=== PATIENT | female | born 1950 | race Hispanic/Latino ===

== ENCOUNTER 2021-07-07 12:06 | Observation (INO) | payer MEDICARE, OTHER ==
[~2021-07-07] VITALS: Ht 147.3 cm; Wt 45.8 kg
[~2021-07-07 12:06] MED LIST: METR-172 PO; SULF1TAB41 PO
[2021-07-07 12:45] LABS: BASOPHILS % (AUTO) 0.2 % (0.0-5.0); EOSINOPHILS % (AUTO) 1.9 % (0.0-8.0); HEMATOCRIT 22.4 % (36-48); LYMPHOCYTES % (AUTO) 8.1 % (21.0-51.0); MEAN CORPUSCULAR HEMOGLOBIN 34.2 pg (27.0-33.0); MEAN CORPUSCULAR HGB CONC 33.5 g/dL (32.0-36.0); MEAN CORPUSCULAR VOLUME 102.3 fL (79-99); MONOCYTES % (AUTO) 3.2 % (3.0-13.0); NEUTROPHILS % (AUTO) 86.1 % (40.0-77.0); PLATELET COUNT (AUTO) 257 K/uL (130-400); RED BLOOD CELL COUNT(AUTO) 2.19 MIL/uL (4.00-5.50); RED CELL DISTRIBUTION WIDTH 15.9 % (11.0-15.5); WHITE BLOOD COUNT (AUTO) 6.3 K/uL (4.8-10.8)
[2021-07-07 13:00] LABS: INR 1.61 (0.85-1.15); PROTHROMBIN TIME 16.8 SEC (9.6-11.6)
[2021-07-07 13:02] LABS: PARTIAL THROMBOPLASTIN TIME 44.5 SEC (26.3-35.5)
[2021-07-07 13:09] LABS: ALBUMIN 1.2 g/dL (3.5-5.0); BILIRUBIN,TOTAL 1.5 mg/dL (0.2-1.0); CREATININE 1.2 mg/dL (0.5-1.5); POTASSIUM 3.7 mmol/L (3.5-5.1); TOTAL PROTEIN, SERUM 5.3 g/dL (6.0-8.3)
[2021-07-07 14:44] LABS: APPEARANCE,URINE Clear (CLEAR); BILIRUBIN,URINE Small (NEGATIVE); COLOR,URINE Dark Yellow (YELLOW); GLUCOSE, URINE (UA) Negative (NEGATIVE); KETONES,URINE Trace mg/dL (NEGATIVE); LEUKOCYTE ESTERASE ,URINE Moderate (NEGATIVE); NITRATE,URINE Negative (NEGATIVE); OCCULT BLOOD,URINE Negative (NEGATIVE); PROTEIN,URINE Negative (NEGATIVE)
[2021-07-07 15:29] LABS: BACTERIA,URINE Few /HPF (None Seen); RBC,URINE 0-1 /HPF (0-1)
[2021-07-07 15:30] LABS: SQUAMOUS EPITHELIAL CELL,UR Rare /HPF (0-2)
[2021-07-07 16:28] VITALS: BP 10/48
[2021-07-07] MEDS ORDERED: CLONIDINE HCL 0.1 MG TABLET PO PRN (17:00)
[2021-07-07] MEDS ORDERED: ACETAMINOPHEN 650 MG SUPPOSITORY RC PRN (17:00)
[2021-07-07] MEDS ORDERED: ONDANSETRON 4MG INJ IVP PRN (17:00)
[2021-07-07] MEDS ORDERED: ACETAMINOPHEN 325 MG TAB PO PRN (17:00)
[2021-07-07] MEDS ORDERED: 0.9%NACL 50ML 50 ML IV ONE (17:52)
[2021-07-07 17:59] LABS: HEMATOCRIT 19.3 % (36-48)
[2021-07-07] MEDS: 0.9%NACL 1000ML 1,000 ML IV SCH (17:59)
[2021-07-07] MEDS: ZOSYN 3.375GM +NS 50ML IV SCH (17:59)
[2021-07-07] MEDS ORDERED: PHYTONADIONE 10 MG in 0.9%NACL 50ML 50 ML IVPB ONE (18:00)
[2021-07-07 18:30] LABS: IRON, SERUM 53 mcg/dL (50-170); TOTAL IRON BINDING CAPACITY 50 mcg/dL (250-450)
[2021-07-07 18:39] LABS: THYROID STIMULATING HORMONE 1.93 uIU/mL (0.36-3.74)
[2021-07-07 18:54] VITALS: BP 95/51
[2021-07-07 20:00] VITALS: BP 100/52
[2021-07-07] MEDS: PANTOPRAZOLE 40 MG/VIAL IVP SCH (20:27)
[2021-07-08] MEDS: ZOSYN 3.375GM +NS 50ML IV SCH ×3 (01:11→16:36)
[2021-07-08 01:45] VITALS: BP 114/65
[2021-07-08 02:32] LABS: HEMATOCRIT 31.6 % (36-48); MEAN CORPUSCULAR HEMOGLOBIN 29.9 pg (27.0-33.0); MEAN CORPUSCULAR HGB CONC 34.2 g/dL (32.0-36.0); MEAN CORPUSCULAR VOLUME 87.5 fL (79-99); PLATELET COUNT (AUTO) 181 K/uL (130-400); RED BLOOD CELL COUNT(AUTO) 3.61 MIL/uL (4.00-5.50); RED CELL DISTRIBUTION WIDTH 18.3 % (11.0-15.5); WHITE BLOOD COUNT (AUTO) 4.4 K/uL (4.8-10.8)
[2021-07-08 02:41] LABS: CREATININE 0.9 mg/dL (0.5-1.5); POTASSIUM 3.3 mmol/L (3.5-5.1)
[2021-07-08] MEDS ORDERED: LOSA1TAB37 PO (02:48)
[2021-07-08] MEDS ORDERED: METO-391 PO (02:48)
[2021-07-08] MEDS ORDERED: PANT40TA54 PO (02:48)
[2021-07-08 04:00] VITALS: BP 107/62
[2021-07-08] MEDS: 0.9%NACL 1000ML 1,000 ML IV SCH ×2 (06:14→20:10)
[2021-07-08 08:00] VITALS: BP 112/65
[2021-07-08 08:12] LABS: HEMATOCRIT 34.4 % (36-48)
[2021-07-08] MEDS: PANTOPRAZOLE 40 MG/VIAL IVP SCH ×2 (08:20→20:53)
[2021-07-08 12:00] VITALS: BP 112/58
[2021-07-08 16:00] VITALS: BP 113/63
[2021-07-08 18:16] LABS: HEMATOCRIT 34.4 % (36-48)
[2021-07-08 20:00] VITALS: BP 106/60
[2021-07-09] VITALS (19 sets, daily range): BP systolic 92–125; BP diastolic 44–90
[2021-07-09] MEDS: ZOSYN 3.375GM +NS 50ML IV SCH ×3 (01:12→16:54)
[2021-07-09 04:10] LABS: MEAN CORPUSCULAR HEMOGLOBIN 30.2 pg (27.0-33.0); MEAN CORPUSCULAR HGB CONC 33.5 g/dL (32.0-36.0); MEAN CORPUSCULAR VOLUME 89.9 fL (79-99); RED BLOOD CELL COUNT(AUTO) 3.78 MIL/uL (4.00-5.50); WHITE BLOOD COUNT (AUTO) 4.2 K/uL (4.8-10.8)
[2021-07-09 04:30] LABS: CREATININE 0.9 mg/dL (0.5-1.5); POTASSIUM 3.6 mmol/L (3.5-5.1)
[2021-07-09 04:44] LABS: INR 1.35 (0.85-1.15); PROTHROMBIN TIME 14.3 SEC (9.6-11.6)
[2021-07-09 04:45] LABS: PARTIAL THROMBOPLASTIN TIME 40.9 SEC (26.3-35.5)
[2021-07-09] MEDS: PANTOPRAZOLE 40 MG/VIAL IVP SCH (08:53)
[2021-07-09] MEDS: 0.9%NACL 1000ML 1,000 ML IV SCH ×2 (09:30→22:35)
[2021-07-09] MEDS ORDERED: PROPOFOL 10 MG/ML 20ML VIAL IV ONE (13:19)
[2021-07-09] MEDS ORDERED: LIDOCAINE PF 100MG/5ML (2%) SYRINGE 5ML ONE (13:21)
[2021-07-09] MEDS ORDERED: PANT40TA PO (14:12)
[2021-07-09] MEDS ORDERED: SUCR1TAB28 PO (14:12)
[2021-07-09] MEDS: SUCRALFATE 1 GM TABLET PO SCH ×2 (16:54→20:08)
[2021-07-09] MEDS: PANTOPRAZOLE 40 MG TAB DR PO SCH (20:08)
[2021-07-10] MEDS: ZOSYN 3.375GM +NS 50ML IV SCH ×2 (00:34→09:50)
[2021-07-10 00:36] VITALS: BP 114/63
[2021-07-10 02:08] LABS: HEPATITIS A ANTIBODY IGM Negative (Negative); HEPATITIS B CORE IGM Negative (Negative); HEPATITIS Bs ANTIGEN SCREEN P Negative (Negative)
[2021-07-10 04:20] LABS: CREATININE 0.8 mg/dL (0.5-1.5); POTASSIUM 3.3 mmol/L (3.5-5.1)
[2021-07-10 05:29] VITALS: BP 118/63
[2021-07-10] MEDS: SUCRALFATE 1 GM TABLET PO SCH ×2 (06:26→10:30)
[2021-07-10] MEDS ORDERED: INSULIN HUMULIN R 100 UNIT/ML 3ML SQ SCH (07:30)
[2021-07-10 08:00] VITALS: BP 126/74
[2021-07-10] MEDS: PANTOPRAZOLE 40 MG TAB DR PO SCH (09:50)
== END 2021-07-10 12:32 | disposition home or self-care (01) ==
LOC: EDH 12:06 → EDHIP 16:58 → 4BH 07-08 01:28
PROVIDERS: ADMIT Internal Medicine; ATTEND Internal Medicine
DX: D64.9 Anemia, unspecified (principal); Z20.822 Contact with and (suspected) exposure to COVID-19; K92.2 Gastrointestinal hemorrhage, unspecified; I10 Essential (primary) hypertension; N39.0 Urinary tract infection, site not specified; K21.9 Gastro-esophageal reflux disease without esophagitis; R18.8 Other ascites; N28.1 Cyst of kidney, acquired; R53.83 Other fatigue; K63.3 Ulcer of intestine; K76.9 Liver disease, unspecified; D62 Acute posthemorrhagic anemia; R42 Dizziness and giddiness; C18.9 Malignant neoplasm of colon, unspecified; Z90.411 Acquired partial absence of pancreas; Z90.710 Acquired absence of both cervix and uterus
CPT/HCPCS: 36415; 36430; 43255; 71045; 76705; 80048; 80053; 80074; 81001; 82270; 82550; 82607; 82728; 82746; 82948; 83880; 84443; 85014; 85018; 85025; 85027; 85610; 85730; 86677; 86850; 86900; 86901; 86923; 87088; 87635; 93005; 96361; 96365; 96366; 96367; 96375; 96376; A4606; C9113; G0378; J2001; J2543; J2704; J3430; J7030; P9016

== ENCOUNTER 2021-09-04 09:00 | Inpatient (IN) | payer OTHER ==
[~2021-09-04] VITALS: Ht 147.3 cm; Wt 46.7 kg
[~2021-09-04 09:00] MED LIST changes: +LOSA1TAB37 PO; +METO-391 PO; -METR-172 PO; +PANT40TA PO; +SUCR1TAB28 PO; -SULF1TAB41 PO
[2021-09-04 09:57] LABS: ABG BASE EXCESS -7.4 mmol/L (-2.0-3.0); ABG HCO3 14.2 mmol/L (21.0-28.0); ABG OXYGEN SATURATION 96.3 % (95.0-99.0); ABG PCO2 17 mmHg (32-45)
[2021-09-04 10:05] LABS: BASOPHILS % (AUTO) 0.1 % (0.0-5.0); EOSINOPHILS % (AUTO) 1.7 % (0.0-8.0); MEAN CORPUSCULAR HEMOGLOBIN 32.1 pg (27.0-33.0); MEAN CORPUSCULAR HGB CONC 33.5 g/dL (32.0-36.0); MEAN CORPUSCULAR VOLUME 95.9 fL (79-99); MONOCYTES % (AUTO) 4.5 % (3.0-13.0); NEUTROPHILS % (AUTO) 89.3 % (40.0-77.0); PLATELET COUNT (AUTO) 206 K/uL (130-400); RED BLOOD CELL COUNT(AUTO) 2.18 MIL/uL (4.00-5.50); RED CELL DISTRIBUTION WIDTH 22.8 % (11.0-15.5); WHITE BLOOD COUNT (AUTO) 8.5 K/uL (4.8-10.8)
[2021-09-04 10:16] LABS: POTASSIUM 3.1 mmol/L (3.5-5.1)
[2021-09-04 10:21] LABS: ALBUMIN 1.1 g/dL (3.5-5.0); BILIRUBIN,TOTAL 0.8 mg/dL (0.2-1.0); MAGNESIUM 1.5 mg/dL (1.80-2.40); TOTAL PROTEIN, SERUM 4.9 g/dL (6.0-8.3)
[2021-09-04 10:23] LABS: HEMATOCRIT 20.9 % (36-48)
[2021-09-04 10:29] LABS: B-TYPE NATRIURETIC PEPTIDE 231 pg/mL (0-100)
[2021-09-04] MEDS ORDERED: IOHEXOL 350 MG/ML 100ML INFUS..BTL IV ONE (12:09)
[2021-09-04] MEDS ORDERED: IRON1CAP32 PO (14:28)
[2021-09-04] MEDS ORDERED: LATA7.5D OP (14:58)
[2021-09-04] MEDS ORDERED: TIMO1DRO5 OP (14:58)
[2021-09-04] MEDS ORDERED: MAGNESIUM 4GM PREMIX 100ML 100 ML IV PRN (16:00)
[2021-09-04] MEDS ORDERED: POTASSIUM CHLORIDE 10% ELIXIR 20 MEQ/15 ML UDCUP PO PRN (16:00)
[2021-09-04] MEDS ORDERED: HYDRALAZINE 20MG/ML VIAL IV PRN (16:30)
[2021-09-04] MEDS ORDERED: ACETAMINOPHEN 325 MG TAB PO PRN ×2 (16:30)
[2021-09-04] MEDS ORDERED: ALPRAZOLAM 0.25 MG TABLET PO PRN (16:30)
[2021-09-04] MEDS ORDERED: ONDANSETRON 4MG INJ IVP PRN (16:30)
[2021-09-04] MEDS ORDERED: METOPROLOL TARTRATE 1 MG/ML 5ML VIAL IV PRN (16:30)
[2021-09-04] MEDS ORDERED: HYDROCODONE/ACETAMINOPHEN 5/325 MG TAB PO PRN (16:30)
[2021-09-04] MEDS ORDERED: LACTULOSE 20 GM/30 ML UDCUP PO PRN (16:30)
[2021-09-04] MEDS: SODIUM BICARB 50MEQ 50ML VIAL IV SCH (17:29)
[2021-09-04] MEDS: KCL 20 MEQ ERTAB PO PRN (17:30)
[2021-09-04] MEDS: FUROSEMIDE 20MG VIAL IV SCH (17:38)
[2021-09-04] MEDS: SODIUM BICARBONATE 650 MG TAB PO SCH (21:09)
[2021-09-05] MEDS: KCL 20 MEQ ERTAB PO PRN ×4 (00:37→16:41)
[2021-09-05 03:06] VITALS: BP 122/68
[2021-09-05 04:50] LABS: HEMATOCRIT 22.3 % (36-48); MEAN CORPUSCULAR HGB CONC 33.2 g/dL (32.0-36.0); MEAN CORPUSCULAR VOLUME 96.5 fL (79-99); RED BLOOD CELL COUNT(AUTO) 2.31 MIL/uL (4.00-5.50); WHITE BLOOD COUNT (AUTO) 10.6 K/uL (4.8-10.8)
[2021-09-05] MEDS: FUROSEMIDE 20MG VIAL IV SCH ×2 (05:07→16:47)
[2021-09-05 05:36] LABS: CREATININE 0.8 mg/dL (0.5-1.5); MAGNESIUM 1.6 mg/dL (1.80-2.40); PHOSPHORUS 3.3 mg/dL (2.5-4.9); POTASSIUM 3.6 mmol/L (3.5-5.1); THYROID STIMULATING HORMONE 2.21 uIU/mL (0.36-3.74)
[2021-09-05] MEDS ORDERED: VITA1CAP PO (06:20)
[2021-09-05] MEDS ORDERED: ASCO500T19 PO (06:20)
[2021-09-05 07:32] LABS: ABG BASE EXCESS -0.5 mmol/L (-2.0-3.0); ABG HCO3 19.9 mmol/L (21.0-28.0); ABG OXYGEN SATURATION 98.3 % (95.0-99.0); ABG PCO2 23 mmHg (32-45)
[2021-09-05 08:00] VITALS: BP 111/64
[2021-09-05] MEDS ORDERED: PANTOPRAZOLE 40 MG/VIAL IVP SCH (09:00)
[2021-09-05] MEDS: SODIUM BICARB 50MEQ 50ML VIAL IV SCH (09:06)
[2021-09-05] MEDS: SPIRONOLACTONE 25 MG TAB PO SCH (10:06)
[2021-09-05] MEDS: SODIUM BICARBONATE 650 MG TAB PO SCH ×3 (10:06→21:42)
[2021-09-05 10:15] LABS: HEMATOCRIT 21.6 % (36-48); MEAN CORPUSCULAR HEMOGLOBIN 32.3 pg (27.0-33.0); MEAN CORPUSCULAR HGB CONC 33.8 g/dL (32.0-36.0); MEAN CORPUSCULAR VOLUME 95.6 fL (79-99); RED BLOOD CELL COUNT(AUTO) 2.26 MIL/uL (4.00-5.50); RED CELL DISTRIBUTION WIDTH 22.9 % (11.0-15.5); WHITE BLOOD COUNT (AUTO) 11.2 K/uL (4.8-10.8)
[2021-09-05 12:08] VITALS: BP 106/57
[2021-09-05] MEDS ORDERED: COMPOUND IV MISC 1 EACH IVSOLN MISC PRN (13:00)
[2021-09-05 13:59] LABS: LACTATE DEHYDROGENASE 289 U/L (81-234)
[2021-09-05 14:01] LABS: IRON, SERUM 63 mcg/dL (50-170)
[2021-09-05 14:10] LABS: APPEARANCE,URINE Clear (CLEAR); BILIRUBIN,URINE Negative (NEGATIVE); COLOR,URINE Yellow (YELLOW); GLUCOSE, URINE (UA) Negative (NEGATIVE); KETONES,URINE Negative (NEGATIVE); LEUKOCYTE ESTERASE ,URINE Small (NEGATIVE); NITRATE,URINE Negative (NEGATIVE); OCCULT BLOOD,URINE Negative (NEGATIVE); PROTEIN,URINE Negative (NEGATIVE)
[2021-09-05 14:18] LABS: TOTAL IRON BINDING CAPACITY < 36 mcg/dL (250-450)
[2021-09-05 14:29] LABS: RBC,URINE 0-1 /HPF (0-1)
[2021-09-05 14:30] LABS: SQUAMOUS EPITHELIAL CELL,UR Rare /HPF (0-2); TRANSITIONAL EPI CELLS,URINE Rare /HPF (None Seen)
[2021-09-05 14:31] LABS: BACTERIA,URINE Rare /HPF (None Seen)
[2021-09-05] MEDS ORDERED: MAGNESIUM CITRATE 296 ML SOLUTION PO ONE (15:00)
[2021-09-05] MEDS ORDERED: LACTULOSE 20 GM/30 ML UDCUP PO ONE (15:00)
[2021-09-05 15:59] LABS: HEMATOCRIT 21.3 % (36-48); MEAN CORPUSCULAR HEMOGLOBIN 31.8 pg (27.0-33.0); MEAN CORPUSCULAR HGB CONC 32.9 g/dL (32.0-36.0); MEAN CORPUSCULAR VOLUME 96.8 fL (79-99); RED BLOOD CELL COUNT(AUTO) 2.2 MIL/uL (4.00-5.50); RED CELL DISTRIBUTION WIDTH 23.2 % (11.0-15.5); WHITE BLOOD COUNT (AUTO) 9.4 K/uL (4.8-10.8)
[2021-09-05] MEDS ORDERED: PEG 3350/NA SULF,BICARB,CL/KCL 4000 ML SOLN PO SCH (16:00)
[2021-09-05 16:04] VITALS: BP 123/80
[2021-09-05] MEDS ORDERED: KCL 20 MEQ ERTAB PO SCH (18:00)
[2021-09-05 21:27] VITALS: BP 133/89
[2021-09-05] MEDS: CEFTRIAXONE 2GM VIAL IVPB SCH (21:41)
[2021-09-05 21:58] LABS: MEAN CORPUSCULAR HEMOGLOBIN 32.2 pg (27.0-33.0); MEAN CORPUSCULAR HGB CONC 32.8 g/dL (32.0-36.0); RED BLOOD CELL COUNT(AUTO) 1.99 MIL/uL (4.00-5.50); RED CELL DISTRIBUTION WIDTH 23.3 % (11.0-15.5); WHITE BLOOD COUNT (AUTO) 7.1 K/uL (4.8-10.8)
[2021-09-05 22:02] LABS: HEMATOCRIT 19.5 % (36-48)
[2021-09-05 23:06] LABS: HEMATOCRIT 20.7 % (36-48)
[2021-09-05] MEDS: PANTOPRAZOLE 40 MG/VIAL IVP SCH (23:48)
[2021-09-05 23:51] VITALS: BP 133/89
[2021-09-06 03:28] VITALS: BP 105/66
[2021-09-06] MEDS: FUROSEMIDE 20MG VIAL IV SCH ×2 (04:29→16:18)
[2021-09-06 05:36] LABS: HEMATOCRIT 27.5 % (36-48); MEAN CORPUSCULAR HGB CONC 33.1 g/dL (32.0-36.0); MEAN CORPUSCULAR VOLUME 93.5 fL (79-99); RED BLOOD CELL COUNT(AUTO) 2.94 MIL/uL (4.00-5.50); RED CELL DISTRIBUTION WIDTH 20.8 % (11.0-15.5); WHITE BLOOD COUNT (AUTO) 7.4 K/uL (4.8-10.8)
[2021-09-06 05:47] LABS: CREATININE 0.7 mg/dL (0.5-1.5); MAGNESIUM 2.8 mg/dL (1.80-2.40); PHOSPHORUS 3.4 mg/dL (2.5-4.9); POTASSIUM 3.9 mmol/L (3.5-5.1)
[2021-09-06 08:00] VITALS: BP 128/54
[2021-09-06] MEDS: TIMOLOL MALEATE 0.5% 5 ML BOTTLE OP SCH (09:00)
[2021-09-06] MEDS: IRON SUCROSE COMPLEX 300 MG in 0.9%NACL 50ML 50 ML IV SCH (09:30)
[2021-09-06] MEDS: PANTOPRAZOLE 40 MG/VIAL IVP SCH ×2 (09:31→20:36)
[2021-09-06] MEDS: SODIUM BICARBONATE 650 MG TAB PO SCH ×3 (13:18→20:36)
[2021-09-06] MEDS: SUCRALFATE 1 GM TABLET PO SCH ×4 (13:18→20:36)
[2021-09-06] MEDS: LIPASE/PROTEASE/AMYLASE 5000/17000/24000 PO SCH ×2 (13:18→16:17)
[2021-09-06] MEDS: SPIRONOLACTONE 25 MG TAB PO SCH (13:18)
[2021-09-06] MEDS: VITAMIN B COMPLEX 1 CAPSULE PO SCH (13:18)
[2021-09-06 16:00] VITALS: BP 118/58
[2021-09-06] MEDS ORDERED: MAGNESIUM CITRATE 296 ML SOLUTION PO SCH (16:00)
[2021-09-06] MEDS: SODIUM BICARB 50MEQ 50ML VIAL IV SCH (16:00)
[2021-09-06] MEDS ORDERED: THIAMINE HCL 100 MG TABLET PO ONE (16:30)
[2021-09-06] MEDS: CEFTRIAXONE 2GM VIAL IVPB SCH (17:09)
[2021-09-06] MEDS: LATANOPROST 2.5 ML DROPS OP SCH (20:37)
[2021-09-06 21:00] VITALS: BP 132/79
[2021-09-06 23:36] VITALS: BP 126/86
[2021-09-07] VITALS (21 sets, daily range): BP systolic 107–154; BP diastolic 52–81
[2021-09-07 04:33] LABS: HEMATOCRIT 30.6 % (36-48); MEAN CORPUSCULAR HEMOGLOBIN 31.5 pg (27.0-33.0); MEAN CORPUSCULAR HGB CONC 33.3 g/dL (32.0-36.0); MEAN CORPUSCULAR VOLUME 94.4 fL (79-99); RED BLOOD CELL COUNT(AUTO) 3.24 MIL/uL (4.00-5.50); RED CELL DISTRIBUTION WIDTH 22.2 % (11.0-15.5)
[2021-09-07 04:53] LABS: CREATININE 0.8 mg/dL (0.5-1.5); MAGNESIUM 2.4 mg/dL (1.80-2.40); PHOSPHORUS 3.7 mg/dL (2.5-4.9); POTASSIUM 3.9 mmol/L (3.5-5.1)
[2021-09-07] MEDS: FUROSEMIDE 20MG VIAL IV SCH ×2 (05:20→16:27)
[2021-09-07] MEDS: IRON SUCROSE COMPLEX 300 MG in 0.9%NACL 50ML 50 ML IV SCH (09:53)
[2021-09-07] MEDS: SODIUM BICARBONATE 650 MG TAB PO SCH ×3 (09:54→21:51)
[2021-09-07] MEDS: MULTIVITAMIN TABLET PO SCH (09:54)
[2021-09-07] MEDS: TIMOLOL MALEATE 0.5% 5 ML BOTTLE OP SCH (09:54)
[2021-09-07] MEDS: PANTOPRAZOLE 40 MG/VIAL IVP SCH ×2 (09:54→21:51)
[2021-09-07] MEDS: SPIRONOLACTONE 25 MG TAB PO SCH (09:54)
[2021-09-07] MEDS: SUCRALFATE 1 GM TABLET PO SCH ×4 (09:54→21:51)
[2021-09-07] MEDS: VITAMIN B COMPLEX 1 CAPSULE PO SCH (09:54)
[2021-09-07] MEDS ORDERED: PROPOFOL 10 MG/ML 20ML VIAL IV ONE (13:06)
[2021-09-07] MEDS ORDERED: LIDOCAINE HCL 1% 20 ML VIAL ONE (13:07)
[2021-09-07] MEDS ORDERED: PHENYLEPHRINE HCL 10 MG/ML 1ML VIAL IV ONE (13:09)
[2021-09-07] MEDS: SODIUM BICARB 50MEQ 50ML VIAL IV SCH (16:00)
[2021-09-07] MEDS: LIPASE/PROTEASE/AMYLASE 5000/17000/24000 PO SCH ×3 (16:26→17:25)
[2021-09-07] MEDS: CEFTRIAXONE 2GM VIAL IVPB SCH (17:24)
[2021-09-07] MEDS: LATANOPROST 2.5 ML DROPS OP SCH (21:58)
[2021-09-08 03:49] VITALS: BP 127/69
[2021-09-08 03:49] LABS: HEMATOCRIT 27.3 % (36-48); MEAN CORPUSCULAR HEMOGLOBIN 31.2 pg (27.0-33.0); MEAN CORPUSCULAR HGB CONC 33.3 g/dL (32.0-36.0); MEAN CORPUSCULAR VOLUME 93.5 fL (79-99); RED BLOOD CELL COUNT(AUTO) 2.92 MIL/uL (4.00-5.50); RED CELL DISTRIBUTION WIDTH 21.5 % (11.0-15.5); WHITE BLOOD COUNT (AUTO) 6.7 K/uL (4.8-10.8)
[2021-09-08 04:06] LABS: CREATININE 0.8 mg/dL (0.5-1.5); MAGNESIUM 2.1 mg/dL (1.80-2.40); PHOSPHORUS 4.2 mg/dL (2.5-4.9)
[2021-09-08] MEDS: FUROSEMIDE 20MG VIAL IV SCH (05:40)
[2021-09-08 08:00] VITALS: BP 116/75
[2021-09-08] MEDS ORDERED: KCL 20 MEQ ERTAB PO SCH (09:30)
[2021-09-08] MEDS: PANTOPRAZOLE 40 MG/VIAL IVP SCH (10:18)
[2021-09-08] MEDS: MULTIVITAMIN TABLET PO SCH (10:18)
[2021-09-08] MEDS: VITAMIN B COMPLEX 1 CAPSULE PO SCH (10:18)
[2021-09-08] MEDS: SPIRONOLACTONE 25 MG TAB PO SCH (10:18)
[2021-09-08] MEDS: LIPASE/PROTEASE/AMYLASE 5000/17000/24000 PO SCH ×2 (10:18→10:27)
[2021-09-08] MEDS: TIMOLOL MALEATE 0.5% 5 ML BOTTLE OP SCH (10:19)
[2021-09-08] MEDS: SODIUM BICARBONATE 650 MG TAB PO SCH (10:25)
[2021-09-08] MEDS: IRON SUCROSE COMPLEX 300 MG in 0.9%NACL 50ML 50 ML IV SCH (10:25)
[2021-09-08] MEDS: SUCRALFATE 1 GM TABLET PO SCH (10:25)
[2021-09-08 12:00] VITALS: BP 145/76
[2021-09-08] MEDS ORDERED: CEFT2VIA12 IVPB (13:54)
[2021-09-08] MEDS ORDERED: [UNRECOGNIZED DRUG - OTHER] PO (13:54)
[2021-09-08] MEDS ORDERED: FERR324T4 PO (13:54)
[2021-09-08] MEDS ORDERED: SODI650T PO (13:54)
[2021-09-08 16:00] VITALS: BP 141/77
== END 2021-09-08 16:15 | DRG 811 ==
LOC: EDH 09:00 → EDHIP 17:04 → OBSVTOIN 17:04 → 3CH 09-05 01:54
PROVIDERS: ADMIT Internal Medicine Critical Care Medicine; ATTEND Internal Medicine Critical Care Medicine
PROC: 30233N1 Transfusion of Nonautologous Red Blood Cells into Peripheral Vein, Percutaneous Approach (ICD-10-PCS; 2021-09-06)
PROC: 0DBH8ZZ Excision of Cecum, Via Natural or Artificial Opening Endoscopic (ICD-10-PCS; principal; 2021-09-07)
DX: D62 Acute posthemorrhagic anemia (principal); E43 Unspecified severe protein-calorie malnutrition; R18.8 Other ascites; E87.2 Acidosis; N39.0 Urinary tract infection, site not specified; K63.5 Polyp of colon; I11.0 Hypertensive heart disease with heart failure; Z20.822 Contact with and (suspected) exposure to COVID-19; K21.9 Gastro-esophageal reflux disease without esophagitis; E78.00 Pure hypercholesterolemia, unspecified; I50.9 Heart failure, unspecified; K64.0 First degree hemorrhoids; K57.30 Diverticulosis of large intestine without perforation or abscess without bleeding; E87.70 Fluid overload, unspecified; B96.1 Klebsiella pneumoniae [K. pneumoniae] as the cause of diseases classified elsewhere; R62.7 Adult failure to thrive; E78.5 Hyperlipidemia, unspecified; R79.89 Other specified abnormal findings of blood chemistry; F03.90 Unspecified dementia, unspecified severity, without behavioral disturbance, psychotic disturbance, mood disturbance, and anxiety; Z68.21 Body mass index [BMI] 21.0-21.9, adult; Z90.710 Acquired absence of both cervix and uterus; Z90.411 Acquired partial absence of pancreas; Z85.42 Personal history of malignant neoplasm of other parts of uterus
CPT/HCPCS: 36415; 36430; 36600; 45385; 71045; 71275; 76705; 80048; 80053; 80061; 81001; 82140; 82270; 82435; 82550; 82607; 82803; 82947; 83540; 83550; 83605; 83615; 83735; 83880; 84100; 84132; 84145; 84295; 84443; 84484; 85014; 85018; 85025; 85027; 85378; 86850; 86900; 86901; 86923; 87040; 87077; 87088; 87186; 87635; 87804; 87880; 88305; 93005; 93306; 93356; 93970; 97039; A4606; C9113; C9803; G0378; J0696; J1756; J1940; J2370; J2704; J3475; J3490; J7030; P9016; Q9967

== ENCOUNTER 2021-10-02 09:32 | Inpatient (IN) | payer OTHER ==
[~2021-10-02] VITALS: Ht 147.3 cm; Wt 55.5 kg
[~2021-10-02 09:32] MED LIST changes: +ASCO500T19 PO; +CEFT2VIA12 IVPB; +FERR324T4 PO; +LATA7.5D OP; +SODI650T PO; +TIMO1DRO5 OP; +VITA1CAP PO; +[UNRECOGNIZED DRUG - OTHER] PO
[2021-10-02 10:08] LABS: EOSINOPHILS % (AUTO) 2.7 % (0.0-8.0); HEMATOCRIT 25.2 % (36-48); LYMPHOCYTES % (AUTO) 25.6 % (21.0-51.0); MEAN CORPUSCULAR HEMOGLOBIN 32.1 pg (27.0-33.0); MEAN CORPUSCULAR HGB CONC 34.5 g/dL (32.0-36.0); MONOCYTES % (AUTO) 5.8 % (3.0-13.0); NEUTROPHILS % (AUTO) 65.5 % (40.0-77.0); PLATELET COUNT (AUTO) 239 K/uL (130-400); RED BLOOD CELL COUNT(AUTO) 2.71 MIL/uL (4.00-5.50); RED CELL DISTRIBUTION WIDTH 17.6 % (11.0-15.5); WHITE BLOOD COUNT (AUTO) 5.2 K/uL (4.8-10.8)
[2021-10-02 10:22] LABS: BILIRUBIN,TOTAL 0.4 mg/dL (0.2-1.0); CREATININE 1.1 mg/dL (0.5-1.5); MAGNESIUM 1.4 mg/dL (1.80-2.40)
[2021-10-02 10:23] LABS: B-TYPE NATRIURETIC PEPTIDE 900 pg/mL (0-100)
[2021-10-02 10:25] LABS: POTASSIUM 2.5 mmol/L (3.5-5.1)
[2021-10-02] MEDS ORDERED: FUROSEMIDE 20MG VIAL IV SCH (10:30)
[2021-10-02] MEDS ORDERED: POTASSIUM CHLORIDE 10% ELIXIR 20 MEQ/15 ML UDCUP PO SCH (11:00)
[2021-10-02] MEDS ORDERED: MAGNESIUM 2GM PREMIX 50ML 50 ML IV SCH (13:30)
[2021-10-02] MEDS ORDERED: ACETAMINOPHEN 650 MG SUPPOSITORY RC PRN (14:00)
[2021-10-02] MEDS ORDERED: POTASSIUM CHLORIDE 10% ELIXIR 20 MEQ/15 ML UDCUP PO PRN (14:00)
[2021-10-02] MEDS ORDERED: ONDANSETRON 4MG INJ IVP PRN (14:00)
[2021-10-02] MEDS ORDERED: DOCUSATE SODIUM 100 MG CAP PO PRN (14:00)
[2021-10-02] MEDS ORDERED: ACETAMINOPHEN 325 MG TAB PO PRN (14:00)
[2021-10-02] MEDS: MAGNESIUM 2GM PREMIX 50ML 50 ML IV PRN (14:02)
[2021-10-02 16:07] LABS: MAGNESIUM 1.7 mg/dL (1.80-2.40)
[2021-10-02 16:08] LABS: POTASSIUM 2.7 mmol/L (3.5-5.1)
[2021-10-02] MEDS ORDERED: FURO20TA4 PO (16:53)
[2021-10-02 16:57] LABS: APPEARANCE,URINE Clear (CLEAR); BILIRUBIN,URINE Negative (NEGATIVE); COLOR,URINE Yellow (YELLOW); GLUCOSE, URINE (UA) Negative (NEGATIVE); KETONES,URINE Negative (NEGATIVE); LEUKOCYTE ESTERASE ,URINE Negative (NEGATIVE); NITRATE,URINE Negative (NEGATIVE); OCCULT BLOOD,URINE Negative (NEGATIVE); PROTEIN,URINE Negative (NEGATIVE); UROBILINOGEN,URINE 0.2 mg/dL (0.2-1.0)
[2021-10-02] MEDS ORDERED: IOHEXOL-350 75 ML VIAL IV ONE (17:34)
[2021-10-02] MEDS: POTASSIUM CHLORIDE 20MEQ/100ML 100 ML IV PRN ×2 (18:26→23:47)
[2021-10-02] MEDS ORDERED: FUROSEMIDE 20MG VIAL IV ONE (20:30)
[2021-10-02] MEDS ORDERED: ENOXAPARIN SODIUM 40 MG/0.4 ML SYRINGE SQ SCH (21:00)
[2021-10-03] MEDS: MAGNESIUM 2GM PREMIX 50ML 50 ML IV PRN (05:38)
[2021-10-03 06:57] LABS: BASOPHILS % (AUTO) 0.2 % (0.0-5.0); EOSINOPHILS % (AUTO) 0.9 % (0.0-8.0); HEMATOCRIT 31.2 % (36-48); LYMPHOCYTES % (AUTO) 29.1 % (21.0-51.0); MEAN CORPUSCULAR HEMOGLOBIN 31.7 pg (27.0-33.0); MEAN CORPUSCULAR HGB CONC 32.1 g/dL (32.0-36.0); MONOCYTES % (AUTO) 5.8 % (3.0-13.0); NEUTROPHILS % (AUTO) 63.5 % (40.0-77.0); PLATELET COUNT (AUTO) 226 K/uL (130-400); RED BLOOD CELL COUNT(AUTO) 3.15 MIL/uL (4.00-5.50); RED CELL DISTRIBUTION WIDTH 17.6 % (11.0-15.5); WHITE BLOOD COUNT (AUTO) 6.4 K/uL (4.8-10.8)
[2021-10-03 07:20] LABS: ALANINE AMINOTRANSFERASE 27 U/L (12-78); ASPARTATE AMINOTRANSFERASE 50 U/L (10-37); BILIRUBIN,TOTAL 0.2 mg/dL (0.2-1.0); CARBON DIOXIDE 22 mmol/L (21-32); CHLORIDE 106 mmol/L (101-111); GLOMERULAR FILTR. RATE CALC 58 mL/min (>60); GLUCOSE,RANDOM 82 mg/dL (70-105); POTASSIUM 3.2 mmol/L (3.5-5.1); SODIUM SERUM 137 mmol/L (136-145); TOTAL PROTEIN, SERUM 3.8 g/dL (6.0-8.3); UREA NITROGEN, BLOOD 7 mg/dL (7-18)
[2021-10-03 07:28] LABS: ALBUMIN < 0.6 g/dL (3.5-5.0)
[2021-10-03] MEDS: FUROSEMIDE 20MG VIAL IV SCH ×2 (09:00→21:00)
[2021-10-03] MEDS ORDERED: ALBUMIN (HUMAN) 25% 100 ML IV SCH (09:30)
[2021-10-03] MEDS: LIDOCAINE HCL-MPF 1% 2ML VIAL IV PRN (10:59)
[2021-10-03] MEDS: POTASSIUM CHLORIDE 20MEQ/100ML 100 ML IV PRN (10:59)
[2021-10-03] MEDS: LIPASE/PROTEASE/AMYLASE 5000/17000/24000 PO SCH ×2 (12:00→16:31)
[2021-10-03] MEDS: SUCRALFATE 1 GM TABLET PO SCH ×3 (12:46→21:07)
[2021-10-03] MEDS: ZOSYN 3.375GM +NS 50ML IV SCH ×2 (13:45→21:17)
[2021-10-03] MEDS: FERROUS SULFATE 325 MG TABLET.DR PO SCH (16:31)
[2021-10-03 18:40] VITALS: BP 112/62
[2021-10-03 20:55] VITALS: BP 109/66
[2021-10-03] MEDS: LATANOPROST 2.5 ML DROPS OP SCH (21:00)
[2021-10-03] MEDS: PANTOPRAZOLE 40 MG TAB DR PO SCH (21:07)
[2021-10-03] MEDS: KCL 20 MEQ ERTAB PO SCH (21:17)
[2021-10-04] VITALS (7 sets, daily range): BP systolic 100–112; BP diastolic 53–64
[2021-10-04] MEDS: ZOSYN 3.375GM +NS 50ML IV SCH ×3 (05:23→21:17)
[2021-10-04 05:43] LABS: BASOPHILS % (AUTO) 0.2 % (0.0-5.0); EOSINOPHILS % (AUTO) 1.8 % (0.0-8.0); LYMPHOCYTES % (AUTO) 28.1 % (21.0-51.0); MEAN CORPUSCULAR HGB CONC 33.5 g/dL (32.0-36.0); MEAN CORPUSCULAR VOLUME 95.4 fL (79-99); MONOCYTES % (AUTO) 7.5 % (3.0-13.0); NEUTROPHILS % (AUTO) 62.2 % (40.0-77.0); PLATELET COUNT (AUTO) 157 K/uL (130-400); RED BLOOD CELL COUNT(AUTO) 2.41 MIL/uL (4.00-5.50); RED CELL DISTRIBUTION WIDTH 17.6 % (11.0-15.5); WHITE BLOOD COUNT (AUTO) 5.4 K/uL (4.8-10.8)
[2021-10-04 05:49] LABS: BILIRUBIN,TOTAL 0.4 mg/dL (0.2-1.0); CREATININE 1.2 mg/dL (0.5-1.5); CRP QUANTITATIVE 3.4 mg/L (0.00-9.0); MAGNESIUM 1.7 mg/dL (1.80-2.40); TOTAL PROTEIN, SERUM 4.9 g/dL (6.0-8.3)
[2021-10-04 05:55] LABS: POTASSIUM 2.9 mmol/L (3.5-5.1)
[2021-10-04] MEDS: POTASSIUM CHLORIDE 20MEQ/100ML 100 ML IV PRN (06:11)
[2021-10-04] MEDS: LIDOCAINE HCL-MPF 1% 2ML VIAL IV PRN (06:11)
[2021-10-04] MEDS: KCL 20 MEQ ERTAB PO PRN ×2 (06:12→18:05)
[2021-10-04] MEDS: TIMOLOL MALEATE 0.5% 5 ML BOTTLE OP SCH (09:00)
[2021-10-04] MEDS: ENOXAPARIN SODIUM 30 MG/0.3 ML SQ SCH (09:00)
[2021-10-04] MEDS: FERROUS SULFATE 325 MG TABLET.DR PO SCH ×2 (09:27→17:05)
[2021-10-04] MEDS: VITAMIN B COMPLEX 1 CAPSULE PO SCH (09:27)
[2021-10-04] MEDS: LIPASE/PROTEASE/AMYLASE 5000/17000/24000 PO SCH ×3 (09:27→17:05)
[2021-10-04] MEDS: ASCORBIC ACID 500 MG TAB PO SCH (09:27)
[2021-10-04] MEDS: PANTOPRAZOLE 40 MG TAB DR PO SCH ×2 (09:27→21:19)
[2021-10-04] MEDS: SUCRALFATE 1 GM TABLET PO SCH ×4 (09:28→21:19)
[2021-10-04] MEDS: KCL 20 MEQ ERTAB PO SCH ×2 (09:28→21:19)
[2021-10-04] MEDS: FUROSEMIDE 20MG VIAL IV SCH ×2 (09:33→21:00)
[2021-10-04] MEDS: LATANOPROST 2.5 ML DROPS OP SCH (21:00)
[2021-10-04] MEDS: MAGNESIUM 2GM PREMIX 50ML 50 ML IV PRN (21:17)
[2021-10-05 03:57] VITALS: BP 101/58
[2021-10-05 04:39] LABS: ALBUMIN 0.9 g/dL (3.5-5.0); BILIRUBIN,TOTAL 0.4 mg/dL (0.2-1.0); CREATININE 1.1 mg/dL (0.5-1.5); MAGNESIUM 1.8 mg/dL (1.80-2.40); POTASSIUM 3.9 mmol/L (3.5-5.1); TOTAL PROTEIN, SERUM 4.5 g/dL (6.0-8.3)
[2021-10-05] MEDS: ZOSYN 3.375GM +NS 50ML IV SCH ×3 (05:14→20:36)
[2021-10-05 05:15] LABS: HEMATOCRIT 22.1 % (36-48); MEAN CORPUSCULAR HGB CONC 33.5 g/dL (32.0-36.0); MEAN CORPUSCULAR VOLUME 95.7 fL (79-99); PLATELET COUNT (AUTO) 154 K/uL (130-400); RED BLOOD CELL COUNT(AUTO) 2.31 MIL/uL (4.00-5.50); RED CELL DISTRIBUTION WIDTH 18.2 % (11.0-15.5); WHITE BLOOD COUNT (AUTO) 5.3 K/uL (4.8-10.8)
[2021-10-05] MEDS: MAGNESIUM 2GM PREMIX 50ML 50 ML IV PRN (06:03)
[2021-10-05 08:00] VITALS: BP 92/54
[2021-10-05] MEDS: VITAMIN B COMPLEX 1 CAPSULE PO SCH (09:04)
[2021-10-05] MEDS: ENOXAPARIN SODIUM 30 MG/0.3 ML SQ SCH (09:04)
[2021-10-05] MEDS: PANTOPRAZOLE 40 MG TAB DR PO SCH ×2 (09:04→20:37)
[2021-10-05] MEDS: KCL 20 MEQ ERTAB PO SCH ×2 (09:04→20:37)
[2021-10-05] MEDS: ASCORBIC ACID 500 MG TAB PO SCH (09:05)
[2021-10-05] MEDS: SUCRALFATE 1 GM TABLET PO SCH ×4 (09:05→20:37)
[2021-10-05] MEDS: FUROSEMIDE 20MG VIAL IV SCH ×2 (09:05→20:38)
[2021-10-05] MEDS: TIMOLOL MALEATE 0.5% 5 ML BOTTLE OP SCH (09:05)
[2021-10-05] MEDS: LIPASE/PROTEASE/AMYLASE 5000/17000/24000 PO SCH ×3 (09:10→16:40)
[2021-10-05] MEDS: FERROUS SULFATE 325 MG TABLET.DR PO SCH ×2 (09:11→16:40)
[2021-10-05 09:14] VITALS: BP 101/67
[2021-10-05 12:00] VITALS: BP 105/65
[2021-10-05 16:00] VITALS: BP 112/73
[2021-10-05 19:51] VITALS: BP 123/65
[2021-10-05] MEDS: LATANOPROST 2.5 ML DROPS OP SCH (20:38)
[2021-10-06] VITALS (21 sets, daily range): BP systolic 93–118; BP diastolic 47–71
[2021-10-06] MEDS: ZOSYN 3.375GM +NS 50ML IV SCH ×3 (04:51→20:49)
[2021-10-06] MEDS: FERROUS SULFATE 325 MG TABLET.DR PO SCH ×2 (08:00→16:34)
[2021-10-06] MEDS: ASCORBIC ACID 500 MG TAB PO SCH (09:00)
[2021-10-06] MEDS: FUROSEMIDE 20MG VIAL IV SCH ×2 (09:00→20:52)
[2021-10-06] MEDS: TIMOLOL MALEATE 0.5% 5 ML BOTTLE OP SCH (09:00)
[2021-10-06] MEDS: SUCRALFATE 1 GM TABLET PO SCH ×4 (09:00→20:51)
[2021-10-06] MEDS: VITAMIN B COMPLEX 1 CAPSULE PO SCH (09:00)
[2021-10-06] MEDS: KCL 20 MEQ ERTAB PO SCH ×2 (09:00→20:50)
[2021-10-06] MEDS ORDERED: PROPOFOL 10 MG/ML 20ML VIAL IV ONE (10:24)
[2021-10-06] MEDS ORDERED: LIDOCAINE PF 100MG/5ML (2%) SYRINGE 5ML ONE (10:24)
[2021-10-06] MEDS: LIPASE/PROTEASE/AMYLASE 5000/17000/24000 PO SCH ×3 (11:57→16:34)
[2021-10-06] MEDS: PANTOPRAZOLE 40 MG TAB DR PO SCH ×2 (12:02→20:51)
[2021-10-06 13:09] LABS: HEMATOCRIT 26.7 % (36-48); MEAN CORPUSCULAR HEMOGLOBIN 31.7 pg (27.0-33.0); MEAN CORPUSCULAR HGB CONC 32.2 g/dL (32.0-36.0); MEAN CORPUSCULAR VOLUME 98.5 fL (79-99); RED BLOOD CELL COUNT(AUTO) 2.71 MIL/uL (4.00-5.50); RED CELL DISTRIBUTION WIDTH 18.4 % (11.0-15.5); WHITE BLOOD COUNT (AUTO) 6.3 K/uL (4.8-10.8)
[2021-10-06 13:23] LABS: BILIRUBIN,TOTAL 0.5 mg/dL (0.2-1.0); CREATININE 1.1 mg/dL (0.5-1.5); POTASSIUM 4.2 mmol/L (3.5-5.1); TOTAL PROTEIN, SERUM 5.3 g/dL (6.0-8.3)
[2021-10-06] MEDS: LATANOPROST 2.5 ML DROPS OP SCH (20:52)
[2021-10-06] MEDS ORDERED: SUCRALFATE 1 GM TABLET PO SCH (21:00)
[2021-10-07 03:40] VITALS: BP 113/60
[2021-10-07] MEDS: ZOSYN 3.375GM +NS 50ML IV SCH ×2 (05:19→11:53)
[2021-10-07 07:38] VITALS: BP 105/52
[2021-10-07] MEDS: LIPASE/PROTEASE/AMYLASE 5000/17000/24000 PO SCH ×3 (08:19→16:09)
[2021-10-07] MEDS: VITAMIN B COMPLEX 1 CAPSULE PO SCH (08:19)
[2021-10-07] MEDS: PANTOPRAZOLE 40 MG TAB DR PO SCH ×2 (08:19→19:30)
[2021-10-07] MEDS: ASCORBIC ACID 500 MG TAB PO SCH (08:20)
[2021-10-07] MEDS: KCL 20 MEQ ERTAB PO SCH ×2 (08:20→19:30)
[2021-10-07] MEDS: SUCRALFATE 1 GM TABLET PO SCH ×4 (08:20→19:30)
[2021-10-07] MEDS: FERROUS SULFATE 325 MG TABLET.DR PO SCH ×2 (08:21→16:09)
[2021-10-07] MEDS: FUROSEMIDE 20MG VIAL IV SCH ×2 (08:22→19:30)
[2021-10-07] MEDS: TIMOLOL MALEATE 0.5% 5 ML BOTTLE OP SCH (09:00)
[2021-10-07 11:23] VITALS: BP 112/63
[2021-10-07 16:00] VITALS: BP 113/57
[2021-10-07 19:18] VITALS: BP 105/57
[2021-10-07] MEDS: LATANOPROST 2.5 ML DROPS OP SCH (19:30)
[2021-10-07 23:45] VITALS: BP 104/54
[2021-10-08 04:00] VITALS: BP 106/58
[2021-10-08 04:15] LABS: MEAN CORPUSCULAR HEMOGLOBIN 31.6 pg (27.0-33.0); MEAN CORPUSCULAR HGB CONC 33.2 g/dL (32.0-36.0); MEAN CORPUSCULAR VOLUME 95.2 fL (79-99); RED BLOOD CELL COUNT(AUTO) 2.09 MIL/uL (4.00-5.50); RED CELL DISTRIBUTION WIDTH 17.7 % (11.0-15.5); WHITE BLOOD COUNT (AUTO) 4.9 K/uL (4.8-10.8)
[2021-10-08 04:18] LABS: HEMATOCRIT 19.9 % (36-48)
[2021-10-08 04:33] LABS: ALBUMIN 0.8 g/dL (3.5-5.0); BILIRUBIN,TOTAL 0.3 mg/dL (0.2-1.0); MAGNESIUM 1.7 mg/dL (1.80-2.40); POTASSIUM 3.5 mmol/L (3.5-5.1); TOTAL PROTEIN, SERUM 4.5 g/dL (6.0-8.3)
[2021-10-08] MEDS: MAGNESIUM 2GM PREMIX 50ML 50 ML IV PRN (05:05)
[2021-10-08 05:13] LABS: HEMATOCRIT 21.1 % (36-48)
[2021-10-08 06:41] LABS: RETICULOCYTE % (AUTO) 1.05 % (0.42-2.23)
[2021-10-08 08:00] VITALS: BP 104/58
[2021-10-08] MEDS: ASCORBIC ACID 500 MG TAB PO SCH (09:21)
[2021-10-08] MEDS: SUCRALFATE 1 GM TABLET PO SCH ×4 (09:21→20:18)
[2021-10-08] MEDS: PANTOPRAZOLE 40 MG TAB DR PO SCH ×2 (09:21→21:38)
[2021-10-08] MEDS: VITAMIN B COMPLEX 1 CAPSULE PO SCH (09:21)
[2021-10-08] MEDS: TIMOLOL MALEATE 0.5% 5 ML BOTTLE OP SCH (09:22)
[2021-10-08] MEDS: KCL 20 MEQ ERTAB PO SCH ×2 (09:22→21:39)
[2021-10-08] MEDS: FUROSEMIDE 20MG VIAL IV SCH ×2 (09:23→20:19)
[2021-10-08] MEDS: LIPASE/PROTEASE/AMYLASE 5000/17000/24000 PO SCH ×3 (09:24→16:40)
[2021-10-08] MEDS: FERROUS SULFATE 325 MG TABLET.DR PO SCH (09:24)
[2021-10-08 12:09] VITALS: BP 127/69
[2021-10-08 16:00] VITALS: BP 123/68
[2021-10-08] MEDS ORDERED: COMPOUND IV MISC 1 EACH IVSOLN MISC PRN (16:30)
[2021-10-08 19:40] VITALS: BP 124/75
[2021-10-08] MEDS: LATANOPROST 2.5 ML DROPS OP SCH (20:19)
[2021-10-09] VITALS: BP 124/70
[2021-10-09 04:41] LABS: HEMATOCRIT 26.8 % (36-48); MEAN CORPUSCULAR HEMOGLOBIN 30.8 pg (27.0-33.0); MEAN CORPUSCULAR VOLUME 90.8 fL (79-99); RED BLOOD CELL COUNT(AUTO) 2.95 MIL/uL (4.00-5.50); RED CELL DISTRIBUTION WIDTH 17.1 % (11.0-15.5); WHITE BLOOD COUNT (AUTO) 4.8 K/uL (4.8-10.8)
[2021-10-09 05:03] LABS: ALBUMIN 0.9 g/dL (3.5-5.0); BILIRUBIN,TOTAL 0.5 mg/dL (0.2-1.0); MAGNESIUM 2.1 mg/dL (1.80-2.40); POTASSIUM 3.5 mmol/L (3.5-5.1); TOTAL PROTEIN, SERUM 4.7 g/dL (6.0-8.3)
[2021-10-09 08:05] VITALS: BP 116/68
[2021-10-09] MEDS ORDERED: FERROUS GLUCONATE TABLET PO SCH (09:00)
[2021-10-09] MEDS ORDERED: IRON SUCROSE COMPLEX 100 MG in 0.9%NACL 50ML 50 ML IV SCH (09:00)
[2021-10-09] MEDS ORDERED: POLYETHYLENE GLYCOL 3350 17 GM POWD.PACK PO SCH (09:00)
[2021-10-09] MEDS: SUCRALFATE 1 GM TABLET PO SCH ×3 (09:46→17:11)
[2021-10-09] MEDS: KCL 20 MEQ ERTAB PO SCH (09:46)
[2021-10-09] MEDS: FUROSEMIDE 20MG VIAL IV SCH (09:46)
[2021-10-09] MEDS: LIPASE/PROTEASE/AMYLASE 5000/17000/24000 PO SCH ×3 (09:46→17:11)
[2021-10-09] MEDS: VITAMIN B COMPLEX 1 CAPSULE PO SCH (09:46)
[2021-10-09] MEDS: ASCORBIC ACID 500 MG TAB PO SCH (09:46)
[2021-10-09] MEDS: PANTOPRAZOLE 40 MG TAB DR PO SCH (09:46)
[2021-10-09] MEDS: TIMOLOL MALEATE 0.5% 5 ML BOTTLE OP SCH (09:47)
[2021-10-09 11:52] VITALS: BP 125/79
[2021-10-18] MEDS ORDERED: FURO20TA4 PO (03:44)
[2021-10-18] MEDS ORDERED: FERR-72 PO (03:44)
[2021-10-18] MEDS ORDERED: POLY17PO4 PO (05:36)
[2021-10-18] MEDS ORDERED: ACET650S14 RC (05:36)
[2021-10-18] MEDS ORDERED: ACET-3194 PO (05:36)
[2021-10-18] MEDS ORDERED: POTA-202 PO (05:36)
[2021-10-18] MEDS ORDERED: ONDA4TAB10 PO (05:36)
[2021-10-18] MEDS ORDERED: DOCU-116 PO (05:36)
== END 2021-10-09 18:35 | DRG 291 ==
LOC: EDH 09:32 → OBSVTOIN 13:37 → EDHIP 13:37 → 4DH 10-03 18:37
PROVIDERS: ADMIT Internal Medicine Critical Care Medicine; ATTEND Internal Medicine Critical Care Medicine
PROC: 0DB68ZX Excision of Stomach, Via Natural or Artificial Opening Endoscopic, Diagnostic (ICD-10-PCS; principal; 2021-10-06)
PROC: 30233N1 Transfusion of Nonautologous Red Blood Cells into Peripheral Vein, Percutaneous Approach (ICD-10-PCS; 2021-10-08)
DX: I13.0 Hypertensive heart and chronic kidney disease with heart failure and stage 1 through stage 4 chronic kidney disease, or unspecified chronic kidney disease (principal); E43 Unspecified severe protein-calorie malnutrition; I50.33 Acute on chronic diastolic (congestive) heart failure; N39.0 Urinary tract infection, site not specified; D62 Acute posthemorrhagic anemia; E83.42 Hypomagnesemia; D63.8 Anemia in other chronic diseases classified elsewhere; N18.30 Chronic kidney disease, stage 3 unspecified; E83.51 Hypocalcemia; Z20.822 Contact with and (suspected) exposure to COVID-19; K21.9 Gastro-esophageal reflux disease without esophagitis; E78.00 Pure hypercholesterolemia, unspecified; E87.70 Fluid overload, unspecified; E88.09 Other disorders of plasma-protein metabolism, not elsewhere classified; E78.5 Hyperlipidemia, unspecified; E87.6 Hypokalemia; B96.1 Klebsiella pneumoniae [K. pneumoniae] as the cause of diseases classified elsewhere; R62.7 Adult failure to thrive; D50.9 Iron deficiency anemia, unspecified; E86.0 Dehydration; Z68.25 Body mass index [BMI] 25.0-25.9, adult; Z90.710 Acquired absence of both cervix and uterus; Z90.49 Acquired absence of other specified parts of digestive tract; Z87.19 Personal history of other diseases of the digestive system; Z85.42 Personal history of malignant neoplasm of other parts of uterus
CPT/HCPCS: 36415; 43239; 71045; 71275; 74176; 80053; 81003; 82040; 82270; 82533; 82607; 82728; 83735; 83880; 84132; 84145; 84443; 84484; 85014; 85018; 85025; 85027; 85378; 85651; 86140; 86850; 86900; 86901; 86923; 87635; 88305; 88342; 93005; 93970; 97039; A4606; G0378; J1650; J1756; J1940; J2001; J2543; J2704; J3475; J3480; J3490; J7030; P9016; Q9967

== ENCOUNTER 2021-12-08 11:53 | Emergency (ER) | payer OTHER ==
[~2021-12-08] VITALS: Ht 152.4 cm; Wt 33.6 kg
[~2021-12-08 11:53] MED LIST changes: +ACET-3194 PO; +ACET650S14 RC; -CEFT2VIA12 IVPB; +DOCU-116 PO; +FERR-72 PO; -FERR324T4 PO; +FURO20TA4 PO; -LOSA1TAB37 PO; -METO-391 PO; +ONDA4TAB10 PO; +POLY17PO4 PO; +POTA-202 PO; -SODI650T PO; -[UNRECOGNIZED DRUG - OTHER] PO
[2021-12-08 12:31] LABS: BASOPHILS % (AUTO) 0.6 % (0.0-5.0); EOSINOPHILS % (AUTO) 0.6 % (0.0-8.0); LYMPHOCYTES % (AUTO) 24.9 % (21.0-51.0); MEAN CORPUSCULAR HEMOGLOBIN 32.8 pg (27.0-33.0); MEAN CORPUSCULAR HGB CONC 32.3 g/dL (32.0-36.0); MEAN CORPUSCULAR VOLUME 101.5 fL (79-99); MONOCYTES % (AUTO) 6.3 % (3.0-13.0); NEUTROPHILS % (AUTO) 67.2 % (40.0-77.0); PLATELET COUNT (AUTO) 251 K/uL (130-400); RED BLOOD CELL COUNT(AUTO) 1.95 MIL/uL (4.00-5.50); RED CELL DISTRIBUTION WIDTH 17.5 % (11.0-15.5); WHITE BLOOD COUNT (AUTO) 5.2 K/uL (4.8-10.8)
[2021-12-08 12:34] LABS: HEMATOCRIT 19.8 % (36-48)
[2021-12-08 13:00] LABS: APPEARANCE,URINE Clear (CLEAR); BILIRUBIN,URINE Negative (NEGATIVE); COLOR,URINE Yellow (YELLOW); GLUCOSE, URINE (UA) Negative (NEGATIVE); KETONES,URINE Negative (NEGATIVE); LEUKOCYTE ESTERASE ,URINE Negative (NEGATIVE); NITRATE,URINE Negative (NEGATIVE); OCCULT BLOOD,URINE Negative (NEGATIVE); PROTEIN,URINE Negative (NEGATIVE)
[2021-12-08 13:04] LABS: CREATININE 0.8 mg/dL (0.5-1.5); POTASSIUM 4.2 mmol/L (3.5-5.1)
[2021-12-08 13:09] LABS: ALBUMIN 1.7 g/dL (3.5-5.0); BILIRUBIN,TOTAL 0.4 mg/dL (0.2-1.0); TOTAL PROTEIN, SERUM 5.3 g/dL (6.0-8.3)
[2021-12-08 23:00] VITALS: BP 117/68
== END 2021-12-08 23:08 | disposition home or self-care (01) ==
LOC: EDH 11:53
DX: D64.9 Anemia, unspecified (principal); K21.9 Gastro-esophageal reflux disease without esophagitis; I50.9 Heart failure, unspecified; Z79.899 Other long term (current) drug therapy
CPT/HCPCS: 36415; 36430; 80053; 81003; 85014; 85018; 85025; 86850; 86900; 86901; 86923; 99285; P9016 ×2

== ENCOUNTER 2022-03-07 19:34 | Inpatient (IN) | payer OTHER ==
[~2022-03-07] VITALS: Ht 147.3 cm; Wt 36.3 kg
[2022-03-07 19:51] LABS: BASOPHILS % (AUTO) 0.1 % (0.0-5.0); HEMATOCRIT 28.3 % (36-48); LYMPHOCYTES % (AUTO) 8.7 % (21.0-51.0); MEAN CORPUSCULAR HEMOGLOBIN 35.3 pg (27.0-33.0); MEAN CORPUSCULAR HGB CONC 32.2 g/dL (32.0-36.0); MEAN CORPUSCULAR VOLUME 109.7 fL (79-99); MONOCYTES % (AUTO) 2.8 % (3.0-13.0); NEUTROPHILS % (AUTO) 87.9 % (40.0-77.0); NUCLEATED RED BLOOD CELLS 0.2 % (0.0-0.19); PLATELET COUNT (AUTO) 199 K/uL (130-400); RED BLOOD CELL COUNT(AUTO) 2.58 MIL/uL (4.00-5.50); RED CELL DISTRIBUTION WIDTH 22.1 % (11.0-15.5); WHITE BLOOD COUNT (AUTO) 12.9 K/uL (4.8-10.8)
[2022-03-07 20:03] LABS: POTASSIUM 4.8 mmol/L (3.5-5.1)
[2022-03-07 20:08] LABS: ALBUMIN 1.3 g/dL (3.5-5.0); BILIRUBIN,TOTAL 0.9 mg/dL (0.2-1.0); TOTAL PROTEIN, SERUM 5.1 g/dL (6.0-8.3)
[2022-03-07] MEDS ORDERED: 0.9%NACL 1000ML 1,000 ML IV ONE (22:30)
[2022-03-07 22:40] LABS: MAGNESIUM 1.8 mg/dL (1.80-2.40)
[2022-03-07 23:24] LABS: APPEARANCE,URINE Cloudy (CLEAR); BILIRUBIN,URINE Negative (NEGATIVE); COLOR,URINE Yellow (YELLOW); GLUCOSE, URINE (UA) Negative (NEGATIVE); KETONES,URINE Negative (NEGATIVE); LEUKOCYTE ESTERASE ,URINE Small (NEGATIVE); NITRATE,URINE Negative (NEGATIVE); OCCULT BLOOD,URINE Negative (NEGATIVE); PROTEIN,URINE Negative (NEGATIVE)
[2022-03-07 23:38] LABS: BACTERIA,URINE Many /HPF (None Seen); RBC,URINE None Seen /HPF (0-1); SQUAMOUS EPITHELIAL CELL,UR Rare /HPF (0-2); WBC,URINE 0-1 /HPF (0-1)
[2022-03-08] VITALS (7 sets, daily range): BP systolic 96–134; BP diastolic 57–74
[2022-03-08] MEDS ORDERED: IOHEXOL 350 MG/ML 100ML INFUS..BTL IV ONE (00:03)
[2022-03-08] MEDS ORDERED: PANT40TA54 PO (02:06)
[2022-03-08] MEDS ORDERED: POTA-79 PO (02:06)
[2022-03-08] MEDS ORDERED: CREON6 PO (02:06)
[2022-03-08] MEDS ORDERED: SUCR1TAB2 PO (02:06)
[2022-03-08] MEDS ORDERED: FURO20TA4 PO (02:06)
[2022-03-08] MEDS ORDERED: PRED10TA3 PO (02:06)
[2022-03-08] MEDS ORDERED: IRON PO (02:06)
[2022-03-08] MEDS ORDERED: CALC3.8S NS (02:06)
[2022-03-08] MEDS ORDERED: SUPER B COMPLEX PO (02:06)
[2022-03-08] MEDS ORDERED: LATA7.5D OU (02:06)
[2022-03-08] MEDS ORDERED: SPIR25TA6 PO (02:06)
[2022-03-08] MEDS ORDERED: CLONIDINE HCL 0.1 MG TABLET PO PRN (02:30)
[2022-03-08] MEDS ORDERED: LABETALOL 20MG SYG IV PRN (02:30)
[2022-03-08] MEDS ORDERED: IPRATROPIUM/ALBUTEROL SULFATE 3 ML SOLUTION IH PRN (02:30)
[2022-03-08] MEDS ORDERED: DOCUSATE SODIUM 100 MG CAP PO PRN ×2 (02:30)
[2022-03-08] MEDS ORDERED: HYDROMORPHONE 1 MG INJ IVP PRN (02:30)
[2022-03-08] MEDS ORDERED: ONDANSETRON 4MG INJ IVP PRN (02:30)
[2022-03-08] MEDS ORDERED: HYDRALAZINE 20MG/ML VIAL IV PRN (02:30)
[2022-03-08] MEDS ORDERED: ACETAMINOPHEN 325 MG TAB PO PRN (02:30)
[2022-03-08] MEDS ORDERED: 0.9%NACL 1000ML 1,000 ML IV SCH (02:30)
[2022-03-08] MEDS ORDERED: TEMAZEPAM 15 MG CAPSULE PO PRN (02:30)
[2022-03-08] MEDS ORDERED: ACETAMINOPHEN 650 MG SUPPOSITORY RC PRN (02:30)
[2022-03-08] MEDS ORDERED: LACTULOSE 20 GM/30 ML UDCUP PO PRN (02:30)
[2022-03-08] MEDS: CEFTRIAXONE 1G VIAL IVP SCH ×2 (02:33→08:37)
[2022-03-08] MEDS: INSULIN HUMULIN R 100 UNIT/ML 3ML SQ SCH ×4 (06:34→20:28)
[2022-03-08] MEDS: DEXTROSE 50%-WATER 50 ML DISP.SYRIN IV PRN (07:03)
[2022-03-08] MEDS: PANTOPRAZOLE 40 MG TAB DR PO SCH ×2 (08:37→20:21)
[2022-03-08] MEDS: VITAMIN B COMPLEX 1 CAPSULE PO SCH (08:37)
[2022-03-08] MEDS: SPIRONOLACTONE 25 MG TAB PO SCH ×2 (08:37→20:21)
[2022-03-08] MEDS: LIPASE/PROTEASE/AMYLASE 5000/17000/24000 PO SCH ×3 (08:37→21:10)
[2022-03-08] MEDS: FERROUS SULFATE 325 MG TABLET.DR PO SCH (08:37)
[2022-03-08] MEDS: KCL 20 MEQ ERTAB PO SCH ×2 (08:38→20:26)
[2022-03-08] MEDS: PREDNISONE 10 MG TABLET PO SCH (08:38)
[2022-03-08] MEDS: SUCRALFATE 1 GM TABLET PO SCH ×2 (08:38→20:21)
[2022-03-08] MEDS: CALCITONIN 3.7 ML AEROSOL NS SCH (08:39)
[2022-03-08 08:58] LABS: BASOPHILS % (AUTO) 0.1 % (0.0-5.0); HEMATOCRIT 25.4 % (36-48); LYMPHOCYTES % (AUTO) 3.9 % (21.0-51.0); MEAN CORPUSCULAR HGB CONC 31.5 g/dL (32.0-36.0); MEAN CORPUSCULAR VOLUME 108.1 fL (79-99); MONOCYTES % (AUTO) 1.9 % (3.0-13.0); NEUTROPHILS % (AUTO) 93.5 % (40.0-77.0); PLATELET COUNT (AUTO) 149 K/uL (130-400); RED BLOOD CELL COUNT(AUTO) 2.35 MIL/uL (4.00-5.50); RED CELL DISTRIBUTION WIDTH 22.2 % (11.0-15.5); WHITE BLOOD COUNT (AUTO) 15.9 K/uL (4.8-10.8)
[2022-03-08] MEDS ORDERED: FUROSEMIDE 20 MG TABLET PO SCH (09:00)
[2022-03-08 09:20] LABS: INR 1.46 (0.85-1.15); PROTHROMBIN TIME 15.6 SEC (9.6-11.6)
[2022-03-08 09:33] LABS: ALBUMIN 1.1 g/dL (3.5-5.0); BILIRUBIN,TOTAL 0.5 mg/dL (0.2-1.0); CREATININE 0.9 mg/dL (0.5-1.5); POTASSIUM 3.6 mmol/L (3.5-5.1); THYROID STIMULATING HORMONE 1.14 uIU/mL (0.36-3.74); TOTAL PROTEIN, SERUM 4.5 g/dL (6.0-8.3)
[2022-03-08] MEDS ORDERED: MAGNESIUM 2GM PREMIX 50ML 50 ML IV PRN ×3 (10:00)
[2022-03-08] MEDS: FUROSEMIDE 40MG VIAL IV SCH ×2 (10:05→21:08)
[2022-03-08] MEDS: LATANOPROST 2.5 ML DROPS OU SCH (20:58)
[2022-03-09 03:33] VITALS: BP 121/76
[2022-03-09 03:46] LABS: BASOPHILS % (AUTO) 0.1 % (0.0-5.0); EOSINOPHILS % (AUTO) 0.2 % (0.0-8.0); HEMATOCRIT 25.5 % (36-48); LYMPHOCYTES % (AUTO) 7.7 % (21.0-51.0); MEAN CORPUSCULAR HEMOGLOBIN 34.5 pg (27.0-33.0); MEAN CORPUSCULAR HGB CONC 32.2 g/dL (32.0-36.0); MEAN CORPUSCULAR VOLUME 107.1 fL (79-99); MONOCYTES % (AUTO) 3.1 % (3.0-13.0); NEUTROPHILS % (AUTO) 88.5 % (40.0-77.0); PLATELET COUNT (AUTO) 155 K/uL (130-400); RED BLOOD CELL COUNT(AUTO) 2.38 MIL/uL (4.00-5.50); RED CELL DISTRIBUTION WIDTH 22.3 % (11.0-15.5); WHITE BLOOD COUNT (AUTO) 12.2 K/uL (4.8-10.8)
[2022-03-09 03:57] LABS: CREATININE 0.9 mg/dL (0.5-1.5); MAGNESIUM 2.1 mg/dL (1.80-2.40); POTASSIUM 4.6 mmol/L (3.5-5.1)
[2022-03-09] MEDS: DEXTROSE 50%-WATER 50 ML DISP.SYRIN IV PRN (05:30)
[2022-03-09] MEDS: INSULIN HUMULIN R 100 UNIT/ML 3ML SQ SCH ×4 (07:30→21:23)
[2022-03-09 08:05] VITALS: BP 125/68
[2022-03-09] MEDS: FERROUS SULFATE 325 MG TABLET.DR PO SCH (08:18)
[2022-03-09] MEDS: CEFTRIAXONE 2GM VIAL IVP SCH (08:18)
[2022-03-09] MEDS: PREDNISONE 10 MG TABLET PO SCH (08:19)
[2022-03-09] MEDS: PANTOPRAZOLE 40 MG TAB DR PO SCH ×2 (08:19→20:40)
[2022-03-09] MEDS: SPIRONOLACTONE 25 MG TAB PO SCH ×2 (08:19→20:40)
[2022-03-09] MEDS: SUCRALFATE 1 GM TABLET PO SCH ×2 (08:19→20:40)
[2022-03-09] MEDS: LIPASE/PROTEASE/AMYLASE 5000/17000/24000 PO SCH ×2 (08:19→20:40)
[2022-03-09] MEDS: VITAMIN B COMPLEX 1 CAPSULE PO SCH (08:19)
[2022-03-09] MEDS: KCL 20 MEQ ERTAB PO SCH ×2 (08:19→20:41)
[2022-03-09] MEDS: CALCITONIN 3.7 ML AEROSOL NS SCH (08:20)
[2022-03-09] MEDS: FUROSEMIDE 40MG VIAL IV SCH (09:06)
[2022-03-09 11:20] VITALS: BP 124/76
[2022-03-09 16:19] VITALS: BP 118/71
[2022-03-09] MEDS: FUROSEMIDE 20 MG TABLET PO SCH (16:27)
[2022-03-09 20:09] VITALS: BP 118/75
[2022-03-09] MEDS: LATANOPROST 2.5 ML DROPS OU SCH (21:29)
[2022-03-09 23:51] VITALS: BP 114/60
[2022-03-10 04:25] VITALS: BP 141/98
[2022-03-10 04:40] LABS: BASOPHILS % (AUTO) 0.1 % (0.0-5.0); EOSINOPHILS % (AUTO) 0.3 % (0.0-8.0); HEMATOCRIT 26.6 % (36-48); LYMPHOCYTES % (AUTO) 12.9 % (21.0-51.0); MEAN CORPUSCULAR HEMOGLOBIN 35.1 pg (27.0-33.0); MEAN CORPUSCULAR HGB CONC 32.3 g/dL (32.0-36.0); MEAN CORPUSCULAR VOLUME 108.6 fL (79-99); MONOCYTES % (AUTO) 4.4 % (3.0-13.0); NEUTROPHILS % (AUTO) 81.9 % (40.0-77.0); NUCLEATED RED BLOOD CELLS 0.2 % (0.0-0.19); PLATELET COUNT (AUTO) 140 K/uL (130-400); RED BLOOD CELL COUNT(AUTO) 2.45 MIL/uL (4.00-5.50); RED CELL DISTRIBUTION WIDTH 21.8 % (11.0-15.5); WHITE BLOOD COUNT (AUTO) 10.3 K/uL (4.8-10.8)
[2022-03-10 04:47] LABS: CREATININE 0.6 mg/dL (0.5-1.5); POTASSIUM 4.7 mmol/L (3.5-5.1)
[2022-03-10] MEDS: INSULIN HUMULIN R 100 UNIT/ML 3ML SQ SCH ×4 (07:30→20:36)
[2022-03-10 08:00] VITALS: BP 120/69
[2022-03-10] MEDS: CEFTRIAXONE 2GM VIAL IVP SCH (08:05)
[2022-03-10] MEDS: LIPASE/PROTEASE/AMYLASE 5000/17000/24000 PO SCH ×2 (08:06→20:39)
[2022-03-10] MEDS: FUROSEMIDE 20 MG TABLET PO SCH ×2 (08:06→16:29)
[2022-03-10] MEDS: FERROUS SULFATE 325 MG TABLET.DR PO SCH (08:06)
[2022-03-10] MEDS: SUCRALFATE 1 GM TABLET PO SCH ×2 (08:06→20:37)
[2022-03-10] MEDS: PANTOPRAZOLE 40 MG TAB DR PO SCH ×2 (08:07→20:39)
[2022-03-10] MEDS: KCL 20 MEQ ERTAB PO SCH ×2 (08:07→20:38)
[2022-03-10] MEDS: VITAMIN B COMPLEX 1 CAPSULE PO SCH (08:07)
[2022-03-10] MEDS: SPIRONOLACTONE 25 MG TAB PO SCH ×2 (08:07→20:38)
[2022-03-10] MEDS: PREDNISONE 10 MG TABLET PO SCH (08:44)
[2022-03-10] MEDS: CALCITONIN 3.7 ML AEROSOL NS SCH (08:45)
[2022-03-10 11:17] VITALS: BP 123/70
[2022-03-10 15:53] VITALS: BP 130/78
[2022-03-10 20:13] VITALS: BP 121/72
[2022-03-10] MEDS: LATANOPROST 2.5 ML DROPS OU SCH (20:37)
[2022-03-10 23:50] VITALS: BP 116/70
[2022-03-11 04:46] VITALS: BP 127/73
[2022-03-11] MEDS: INSULIN HUMULIN R 100 UNIT/ML 3ML SQ SCH ×4 (06:02→21:00)
[2022-03-11 08:00] VITALS: BP 116/64
[2022-03-11] MEDS: CEFTRIAXONE 2GM VIAL IVP SCH (08:11)
[2022-03-11] MEDS: CALCITONIN 3.7 ML AEROSOL NS SCH (08:12)
[2022-03-11] MEDS: PREDNISONE 10 MG TABLET PO SCH (08:12)
[2022-03-11] MEDS: PANTOPRAZOLE 40 MG TAB DR PO SCH ×2 (08:13→20:02)
[2022-03-11] MEDS: SUCRALFATE 1 GM TABLET PO SCH ×2 (08:13→20:02)
[2022-03-11] MEDS: VITAMIN B COMPLEX 1 CAPSULE PO SCH (08:13)
[2022-03-11] MEDS: FERROUS SULFATE 325 MG TABLET.DR PO SCH (08:13)
[2022-03-11] MEDS: FUROSEMIDE 20 MG TABLET PO SCH ×2 (08:13→16:40)
[2022-03-11] MEDS: SPIRONOLACTONE 25 MG TAB PO SCH ×2 (08:13→20:02)
[2022-03-11] MEDS: KCL 20 MEQ ERTAB PO SCH ×2 (08:14→20:02)
[2022-03-11] MEDS: LIPASE/PROTEASE/AMYLASE 5000/17000/24000 PO SCH ×2 (08:15→20:02)
[2022-03-11] MEDS ORDERED: EPOETIN ALFA-EPBX (NON-ESRD) 10,000 UNIT/ML VIAL SQ SCH (09:00)
[2022-03-11 12:26] VITALS: BP 127/77
[2022-03-11 16:00] VITALS: BP 122/71
[2022-03-11 19:32] VITALS: BP 111/66
[2022-03-11] MEDS: LATANOPROST 2.5 ML DROPS OU SCH (20:03)
[2022-03-11 23:11] VITALS: BP 139/79
[2022-03-12 03:35] VITALS: BP 136/77
[2022-03-12] MEDS: INSULIN HUMULIN R 100 UNIT/ML 3ML SQ SCH ×4 (07:01→20:31)
[2022-03-12 08:09] VITALS: BP 109/65
[2022-03-12] MEDS: CEFTRIAXONE 2GM VIAL IVP SCH (08:58)
[2022-03-12] MEDS: FUROSEMIDE 20 MG TABLET PO SCH ×2 (08:58→18:00)
[2022-03-12] MEDS: FERROUS SULFATE 325 MG TABLET.DR PO SCH (08:58)
[2022-03-12] MEDS: PANTOPRAZOLE 40 MG TAB DR PO SCH ×2 (08:59→20:28)
[2022-03-12] MEDS: KCL 20 MEQ ERTAB PO SCH ×2 (08:59→20:31)
[2022-03-12] MEDS: SUCRALFATE 1 GM TABLET PO SCH ×2 (08:59→20:28)
[2022-03-12] MEDS: LIPASE/PROTEASE/AMYLASE 5000/17000/24000 PO SCH ×2 (08:59→20:28)
[2022-03-12] MEDS: VITAMIN B COMPLEX 1 CAPSULE PO SCH (08:59)
[2022-03-12] MEDS: SPIRONOLACTONE 25 MG TAB PO SCH ×2 (08:59→20:28)
[2022-03-12] MEDS: PREDNISONE 10 MG TABLET PO SCH (08:59)
[2022-03-12] MEDS: CALCITONIN 3.7 ML AEROSOL NS SCH (09:00)
[2022-03-12 11:40] VITALS: BP 126/70
[2022-03-12 16:05] VITALS: BP 114/71
[2022-03-12 17:10] LABS: INR 1.13 (0.85-1.15); PROTHROMBIN TIME 12.2 SEC (9.6-11.6)
[2022-03-12 19:27] VITALS: BP 125/77
[2022-03-12] MEDS: LATANOPROST 2.5 ML DROPS OU SCH (20:31)
[2022-03-12 23:13] VITALS: BP 122/72
[2022-03-13 03:37] VITALS: BP 115/71
[2022-03-13 05:02] LABS: EOSINOPHILS % (AUTO) 0.2 % (0.0-8.0); HEMATOCRIT 26.9 % (36-48); LYMPHOCYTES % (AUTO) 8.5 % (21.0-51.0); MEAN CORPUSCULAR HEMOGLOBIN 35.2 pg (27.0-33.0); MEAN CORPUSCULAR HGB CONC 30.9 g/dL (32.0-36.0); MONOCYTES % (AUTO) 6.7 % (3.0-13.0); NEUTROPHILS % (AUTO) 83.9 % (40.0-77.0); PLATELET COUNT (AUTO) 165 K/uL (130-400); RED BLOOD CELL COUNT(AUTO) 2.36 MIL/uL (4.00-5.50); RED CELL DISTRIBUTION WIDTH 20.3 % (11.0-15.5); WHITE BLOOD COUNT (AUTO) 9.7 K/uL (4.8-10.8)
[2022-03-13 05:25] LABS: ALBUMIN 1.2 g/dL (3.5-5.0); BILIRUBIN,TOTAL 0.4 mg/dL (0.2-1.0); CREATININE 0.6 mg/dL (0.5-1.5); MAGNESIUM 1.9 mg/dL (1.80-2.40); PHOSPHORUS 3.8 mg/dL (2.5-4.9); POTASSIUM 4.9 mmol/L (3.5-5.1); TOTAL PROTEIN, SERUM 4.7 g/dL (6.0-8.3)
[2022-03-13] MEDS: INSULIN HUMULIN R 100 UNIT/ML 3ML SQ SCH ×2 (06:21→11:30)
[2022-03-13 07:00] VITALS: BP 140/72
[2022-03-13] MEDS: CALCITONIN 3.7 ML AEROSOL NS SCH (08:49)
[2022-03-13] MEDS: LIPASE/PROTEASE/AMYLASE 5000/17000/24000 PO SCH (08:50)
[2022-03-13] MEDS: SUCRALFATE 1 GM TABLET PO SCH (08:51)
[2022-03-13] MEDS: CEFTRIAXONE 2GM VIAL IVP SCH (08:51)
[2022-03-13] MEDS: SPIRONOLACTONE 25 MG TAB PO SCH (08:51)
[2022-03-13] MEDS: FUROSEMIDE 20 MG TABLET PO SCH (08:51)
[2022-03-13] MEDS: PREDNISONE 10 MG TABLET PO SCH (08:51)
[2022-03-13] MEDS: KCL 20 MEQ ERTAB PO SCH (08:51)
[2022-03-13] MEDS: PANTOPRAZOLE 40 MG TAB DR PO SCH (08:51)
[2022-03-13] MEDS: FERROUS SULFATE 325 MG TABLET.DR PO SCH (08:51)
[2022-03-13] MEDS: VITAMIN B COMPLEX 1 CAPSULE PO SCH (08:51)
[2022-03-13] MEDS ORDERED: EPOETIN ALFA-EPBX (NON-ESRD) 10,000 UNIT/ML VIAL SQ SCH (09:31)
[2022-03-13 11:00] VITALS: BP 128/76
== END 2022-03-13 16:54 | DRG 432 ==
LOC: EDH 19:34 → OBSVTOIN 03-08 01:09 → EDHIP 03-08 01:09 → 2DH 03-08 05:23
PROVIDERS: ADMIT Internal Medicine; ATTEND Internal Medicine
DX: K74.69 Other cirrhosis of liver (principal); E43 Unspecified severe protein-calorie malnutrition; R18.8 Other ascites; N39.0 Urinary tract infection, site not specified; I50.32 Chronic diastolic (congestive) heart failure; J98.11 Atelectasis; I13.0 Hypertensive heart and chronic kidney disease with heart failure and stage 1 through stage 4 chronic kidney disease, or unspecified chronic kidney disease; N17.9 Acute kidney failure, unspecified; E87.1 Hypo-osmolality and hyponatremia; Z68.1 Body mass index [BMI] 19.9 or less, adult; Z20.822 Contact with and (suspected) exposure to COVID-19; B96.20 Unspecified Escherichia coli [E. coli] as the cause of diseases classified elsewhere; D63.8 Anemia in other chronic diseases classified elsewhere; E87.8 Other disorders of electrolyte and fluid balance, not elsewhere classified; K21.9 Gastro-esophageal reflux disease without esophagitis; D46.9 Myelodysplastic syndrome, unspecified; E78.5 Hyperlipidemia, unspecified; F19.90 Other psychoactive substance use, unspecified, uncomplicated; K86.9 Disease of pancreas, unspecified; N18.30 Chronic kidney disease, stage 3 unspecified; R62.7 Adult failure to thrive; Z79.899 Other long term (current) drug therapy; Z85.42 Personal history of malignant neoplasm of other parts of uterus; Z90.411 Acquired partial absence of pancreas; Z90.710 Acquired absence of both cervix and uterus
CPT/HCPCS: 36415; 71045; 71250; 74177; 80048; 80053; 81001; 82306; 82550; 82607; 82948; 83540; 83550; 83605; 83735; 83880; 84100; 84145; 84425; 84443; 84484; 85025; 85610; 87077; 87088; 87186; 87635; 87804; 93005; 94664; 97039; C9803; G0378; J0696; J1815; J1940; J3475; J7030; J7070; J7512; Q9967

== ENCOUNTER 2022-03-19 13:32 | Inpatient (IN) | payer OTHER ==
[~2022-03-19] VITALS: Ht 149.9 cm; Wt 35.6 kg
[~2022-03-19 13:32] MED LIST changes: +CALC3.8S NS; +CREON6 PO; +IRON PO; +LATA7.5D OU; +PANT40TA54 PO; +POTA-79 PO; +PRED10TA3 PO; +SPIR25TA6 PO; +SUCR1TAB2 PO; +SUPER B COMPLEX PO
[2022-03-19 14:34] LABS: BASOPHILS % (AUTO) 0.1 % (0.0-5.0); HEMATOCRIT 29.2 % (36-48); LYMPHOCYTES % (AUTO) 2.5 % (21.0-51.0); MEAN CORPUSCULAR HEMOGLOBIN 35.8 pg (27.0-33.0); MEAN CORPUSCULAR HGB CONC 32.9 g/dL (32.0-36.0); MONOCYTES % (AUTO) 3.6 % (3.0-13.0); NEUTROPHILS % (AUTO) 93.2 % (40.0-77.0); PLATELET COUNT (AUTO) 320 K/uL (130-400); RED BLOOD CELL COUNT(AUTO) 2.68 MIL/uL (4.00-5.50); RED CELL DISTRIBUTION WIDTH 17.6 % (11.0-15.5)
[2022-03-19 14:45] LABS: CARBON DIOXIDE 21 mmol/L (21-32); CHLORIDE 95 mmol/L (101-111); CREATININE 0.8 mg/dL (0.5-1.5); GLOMERULAR FILTR. RATE CALC 75 mL/min (>60); GLUCOSE,RANDOM 168 mg/dL (70-105); POTASSIUM 4.3 mmol/L (3.5-5.1); SODIUM SERUM 127 mmol/L (136-145); UREA NITROGEN, BLOOD 33 mg/dL (7-18)
[2022-03-19 14:50] LABS: ALANINE AMINOTRANSFERASE 29 U/L (12-78); ALBUMIN 1.3 g/dL (3.5-5.0); ASPARTATE AMINOTRANSFERASE 27 U/L (10-37); BILIRUBIN,TOTAL 0.5 mg/dL (0.2-1.0); TOTAL PROTEIN, SERUM 4.2 g/dL (6.0-8.3)
[2022-03-19 14:51] LABS: LIPASE < 50 U/L (114-286)
[2022-03-19 14:55] LABS: APPEARANCE,URINE Turbid (CLEAR); BILIRUBIN,URINE Negative (NEGATIVE); COLOR,URINE Dark Yellow (YELLOW); GLUCOSE, URINE (UA) Negative (NEGATIVE); KETONES,URINE 15 mg/dL (NEGATIVE); LEUKOCYTE ESTERASE ,URINE Moderate (NEGATIVE); NITRATE,URINE Negative (NEGATIVE); OCCULT BLOOD,URINE Large (NEGATIVE); PH,URINE 5.5 (5.0-8.0); PROTEIN,URINE POS 1+ mg/dL (NEGATIVE); UROBILINOGEN,URINE 0.2 mg/dL (0.2-1.0)
[2022-03-19 15:29] LABS: BACTERIA,URINE Few /HPF (None Seen); MUCUS,URINE Few LPF (None Seen); SQUAMOUS EPITHELIAL CELL,UR Few /HPF (0-2); YEAST,URINE BUDDING Many /HPF (None Seen)
[2022-03-19] MEDS ORDERED: HYDRALAZINE 20MG/ML VIAL IV PRN (16:00)
[2022-03-19] MEDS ORDERED: LACTULOSE 20 GM/30 ML UDCUP PO PRN (16:00)
[2022-03-19] MEDS: ARTIFICAL TEARS SOL 15 ML OU SCH ×2 (16:00→22:00)
[2022-03-19] MEDS ORDERED: CEFTRIAXONE 2GM VIAL IVP ONE (16:00)
[2022-03-19] MEDS ORDERED: LABETALOL 20MG SYG IV PRN (16:00)
[2022-03-19] MEDS ORDERED: ALBUTEROL 0.083% 2.5 MG/3 ML INH IH PRN (16:00)
[2022-03-19] MEDS: INSULIN HUMULIN R 100 UNIT/ML 3ML SQ SCH ×2 (16:30→20:25)
[2022-03-19] MEDS: ONDANSETRON 4MG INJ IVP PRN (20:17)
[2022-03-19] MEDS ORDERED: DOXYCYCLINE 100MG+NS 250ML IV SCH (21:00)
[2022-03-20] MEDS ORDERED: ALBUMIN (HUMAN) 5% 250 ML IV SCH
[2022-03-20] MEDS: 0.9% NACL 250ML 250 ML IV SCH ×3 (01:26→05:00)
[2022-03-20 01:50] VITALS: BP 116/74
[2022-03-20] MEDS: LACTULOSE 20 GM/30 ML UDCUP PO SCH ×4 (02:12→20:04)
[2022-03-20 03:17] VITALS: BP 114/68
[2022-03-20] MEDS: ARTIFICAL TEARS SOL 15 ML OU SCH ×4 (04:00→20:06)
[2022-03-20] MEDS: INSULIN HUMULIN R 100 UNIT/ML 3ML SQ SCH ×4 (05:37→21:00)
[2022-03-20 06:24] LABS: BASOPHILS % (AUTO) 0.1 % (0.0-5.0); HEMATOCRIT 29.5 % (36-48); LYMPHOCYTES % (AUTO) 4.6 % (21.0-51.0); MEAN CORPUSCULAR HEMOGLOBIN 35.7 pg (27.0-33.0); MEAN CORPUSCULAR HGB CONC 33.6 g/dL (32.0-36.0); MEAN CORPUSCULAR VOLUME 106.5 fL (79-99); MONOCYTES % (AUTO) 4.1 % (3.0-13.0); NEUTROPHILS % (AUTO) 90.3 % (40.0-77.0); PLATELET COUNT (AUTO) 270 K/uL (130-400); RED BLOOD CELL COUNT(AUTO) 2.77 MIL/uL (4.00-5.50); RED CELL DISTRIBUTION WIDTH 17.5 % (11.0-15.5); WHITE BLOOD COUNT (AUTO) 13.4 K/uL (4.8-10.8)
[2022-03-20 06:44] LABS: MAGNESIUM 2.6 mg/dL (1.80-2.40); POTASSIUM 4.7 mmol/L (3.5-5.1)
[2022-03-20 08:00] VITALS: BP 127/74
[2022-03-20] MEDS ORDERED: LACTULOSE 20 GM/30 ML UDCUP PO SCH (09:00)
[2022-03-20] MEDS: PANTOPRAZOLE 40 MG TAB DR PO SCH (09:43)
[2022-03-20] MEDS: CEFAZOLIN SODIUM 1 GM VIAL IVP SCH ×2 (09:43→20:04)
[2022-03-20 12:00] VITALS: BP 137/75
[2022-03-20 16:00] VITALS: BP 118/79
[2022-03-20] MEDS: ONDANSETRON 4MG INJ IVP PRN (17:36)
[2022-03-20 19:00] VITALS: BP 105/68
[2022-03-21] VITALS (14 sets, daily range): BP systolic 106–134; BP diastolic 62–77
[2022-03-21] MEDS: LACTULOSE 20 GM/30 ML UDCUP PO SCH ×4 (01:31→21:07)
[2022-03-21] MEDS: ARTIFICAL TEARS SOL 15 ML OU SCH ×4 (04:00→21:08)
[2022-03-21 05:14] LABS: HEMATOCRIT 31.4 % (36-48); MEAN CORPUSCULAR HEMOGLOBIN 35.4 pg (27.0-33.0); MEAN CORPUSCULAR HGB CONC 32.8 g/dL (32.0-36.0); MEAN CORPUSCULAR VOLUME 107.9 fL (79-99); NUCLEATED RED BLOOD CELLS 0.2 % (0.0-0.19); RED BLOOD CELL COUNT(AUTO) 2.91 MIL/uL (4.00-5.50); RED CELL DISTRIBUTION WIDTH 17.6 % (11.0-15.5); WHITE BLOOD COUNT (AUTO) 10.7 K/uL (4.8-10.8)
[2022-03-21 05:28] LABS: ALBUMIN 1.3 g/dL (3.5-5.0); BILIRUBIN,TOTAL 0.3 mg/dL (0.2-1.0); CREATININE 1.2 mg/dL (0.5-1.5); INR 1.49 (0.85-1.15); MAGNESIUM 2.5 mg/dL (1.80-2.40); POTASSIUM 4.3 mmol/L (3.5-5.1); PROTHROMBIN TIME 15.9 SEC (9.6-11.6); TOTAL PROTEIN, SERUM 4.1 g/dL (6.0-8.3)
[2022-03-21] MEDS: INSULIN HUMULIN R 100 UNIT/ML 3ML SQ SCH ×4 (05:41→20:48)
[2022-03-21] MEDS: CEFAZOLIN SODIUM 1 GM VIAL IVP SCH ×2 (10:03→21:07)
[2022-03-21] MEDS: PANTOPRAZOLE 40 MG TAB DR PO SCH (10:03)
[2022-03-21 11:28] LABS: APPEARANCE BODY FLUID CLEAR (CLEAR); COLOR,BODY FLUID YELLOW (LT YELLOW); SPECIMENTYPE,BODY FLUID ASCITES; TOTAL VOLUME,BODY FLUID 2500 mL
[2022-03-21 11:29] LABS: BODY FLUID RBC 20 /cu. mm.; BODY FLUID WBC 10 /cu. mm.
[2022-03-21 11:42] LABS: BF LYMPHOCYTE 15 %; BF MESOTHELIAL 31 %
[2022-03-21] MEDS ORDERED: MAGNESIUM CITRATE 296 ML SOLUTION PO SCH (13:00)
[2022-03-21] MEDS ORDERED: PEG 3350/NA SULF,BICARB,CL/KCL 4000 ML SOLN PO SCH (14:00)
[2022-03-21] MEDS: MAGNESIUM CITRATE 296 ML SOLUTION PO SCH (15:53)
[2022-03-22] MEDS: ARTIFICAL TEARS SOL 15 ML OU SCH ×4 (04:00→21:45)
[2022-03-22 04:08] VITALS: BP 111/66
[2022-03-22] MEDS: LACTULOSE 20 GM/30 ML UDCUP PO SCH ×4 (04:40→21:27)
[2022-03-22 04:50] LABS: HEMATOCRIT 27.4 % (36-48); MEAN CORPUSCULAR HEMOGLOBIN 35.7 pg (27.0-33.0); MEAN CORPUSCULAR HGB CONC 33.6 g/dL (32.0-36.0); MEAN CORPUSCULAR VOLUME 106.2 fL (79-99); RED BLOOD CELL COUNT(AUTO) 2.58 MIL/uL (4.00-5.50); RED CELL DISTRIBUTION WIDTH 17.3 % (11.0-15.5); WHITE BLOOD COUNT (AUTO) 10.4 K/uL (4.8-10.8)
[2022-03-22 05:03] LABS: ALBUMIN 1.2 g/dL (3.5-5.0); BILIRUBIN,TOTAL 0.2 mg/dL (0.2-1.0); CREATININE 1.1 mg/dL (0.5-1.5); MAGNESIUM 2.8 mg/dL (1.80-2.40); POTASSIUM 3.4 mmol/L (3.5-5.1)
[2022-03-22] MEDS: INSULIN HUMULIN R 100 UNIT/ML 3ML SQ SCH ×4 (07:30→21:00)
[2022-03-22 08:00] VITALS: BP 111/71
[2022-03-22] MEDS: CEFAZOLIN SODIUM 1 GM VIAL IVP SCH ×2 (10:53→21:26)
[2022-03-22] MEDS: PANTOPRAZOLE 40 MG TAB DR PO SCH (10:54)
[2022-03-22] MEDS: ACETAMINOPHEN 325 MG TAB PO PRN ×2 (10:58→21:38)
[2022-03-22 11:00] VITALS: BP 110/71
[2022-03-22] MEDS: MAGNESIUM CITRATE 296 ML SOLUTION PO SCH (13:23)
[2022-03-22 16:00] VITALS: BP 118/73
[2022-03-22] MEDS ORDERED: KCL 20 MEQ ERTAB PO PRN (17:30)
[2022-03-22] MEDS ORDERED: LIDOCAINE HCL-MPF 1% 2ML VIAL IV PRN (17:30)
[2022-03-22] MEDS ORDERED: POTASSIUM CHLORIDE 20MEQ/100ML 100 ML IV PRN (17:30)
[2022-03-22 20:58] VITALS: BP 128/79
[2022-03-23] VITALS (7 sets, daily range): BP systolic 115–133; BP diastolic 68–76
[2022-03-23] MEDS: LACTULOSE 20 GM/30 ML UDCUP PO SCH ×3 (01:30→21:45)
[2022-03-23 04:54] LABS: HEMATOCRIT 27.2 % (36-48); MEAN CORPUSCULAR HEMOGLOBIN 35.4 pg (27.0-33.0); MEAN CORPUSCULAR HGB CONC 33.1 g/dL (32.0-36.0); MEAN CORPUSCULAR VOLUME 107.1 fL (79-99); NUCLEATED RED BLOOD CELLS 0.3 % (0.0-0.19); RED BLOOD CELL COUNT(AUTO) 2.54 MIL/uL (4.00-5.50); RED CELL DISTRIBUTION WIDTH 17.2 % (11.0-15.5); WHITE BLOOD COUNT (AUTO) 9.9 K/uL (4.8-10.8)
[2022-03-23] MEDS: ARTIFICAL TEARS SOL 15 ML OU SCH ×4 (05:00→22:15)
[2022-03-23 05:18] LABS: ALBUMIN 1.2 g/dL (3.5-5.0); BILIRUBIN,TOTAL 0.2 mg/dL (0.2-1.0); CREATININE 1.1 mg/dL (0.5-1.5); MAGNESIUM 2.5 mg/dL (1.80-2.40); TOTAL PROTEIN, SERUM 3.9 g/dL (6.0-8.3)
[2022-03-23] MEDS: INSULIN HUMULIN R 100 UNIT/ML 3ML SQ SCH ×2 (06:52→21:00)
[2022-03-23] MEDS: CEFAZOLIN SODIUM 1 GM VIAL IVP SCH ×2 (09:34→21:45)
[2022-03-23] MEDS: PANTOPRAZOLE 40 MG TAB DR PO SCH (09:52)
[2022-03-23] MEDS: RIFAXIMIN 550 MG TABLET PO SCH ×2 (10:05→21:46)
[2022-03-23] MEDS: POTASSIUM CHLORIDE 10% ELIXIR 20 MEQ/15 ML UDCUP PO PRN ×3 (11:27→17:15)
[2022-03-23] MEDS: SUCRALFATE 1 GM TABLET PO SCH ×2 (13:00→21:46)
[2022-03-23] MEDS ORDERED: GLYCERIN ADULT SUPP.RECT RC SCH (17:00)
[2022-03-23] MEDS: METOCLOPRAMIDE 10 MG/2 ML VIAL IVP SCH (21:45)
[2022-03-24] MEDS: LACTULOSE 20 GM/30 ML UDCUP PO SCH ×4 (01:30→23:40)
[2022-03-24 03:54] VITALS: BP 116/67
[2022-03-24] MEDS: INSULIN HUMULIN R 100 UNIT/ML 3ML SQ SCH ×4 (06:32→21:00)
[2022-03-24] MEDS: ARTIFICAL TEARS SOL 15 ML OU SCH ×4 (06:39→23:39)
[2022-03-24 07:34] LABS: CREATININE 0.8 mg/dL (0.5-1.5); POTASSIUM 4.7 mmol/L (3.5-5.1)
[2022-03-24 07:59] VITALS: BP 105/67
[2022-03-24] MEDS: CEFAZOLIN SODIUM 1 GM VIAL IVP SCH ×2 (09:26→21:00)
[2022-03-24] MEDS: METOCLOPRAMIDE 10 MG/2 ML VIAL IVP SCH ×2 (09:27→21:00)
[2022-03-24] MEDS: SUCRALFATE 1 GM TABLET PO SCH ×2 (09:27→23:40)
[2022-03-24] MEDS: RIFAXIMIN 550 MG TABLET PO SCH ×2 (09:27→23:40)
[2022-03-24] MEDS: PANTOPRAZOLE 40 MG TAB DR PO SCH (09:27)
[2022-03-24 10:56] VITALS: BP 142/69
[2022-03-24] MEDS ORDERED: MAGNESIUM CITRATE 296 ML SOLUTION PO SCH (15:00)
[2022-03-24 16:42] VITALS: BP 112/57
[2022-03-24 20:30] VITALS: BP 114/70
[2022-03-24 23:25] VITALS: BP 102/66
[2022-03-25] MEDS: LACTULOSE 20 GM/30 ML UDCUP PO SCH ×4 (00:55→22:01)
[2022-03-25 03:50] VITALS: BP 122/77
[2022-03-25 05:00] LABS: HEMATOCRIT 32.7 % (36-48); MEAN CORPUSCULAR HEMOGLOBIN 35.2 pg (27.0-33.0); MEAN CORPUSCULAR HGB CONC 32.4 g/dL (32.0-36.0); MEAN CORPUSCULAR VOLUME 108.6 fL (79-99); NUCLEATED RED BLOOD CELLS 0.3 % (0.0-0.19); PLATELET COUNT (AUTO) 56 K/uL (130-400); RED BLOOD CELL COUNT(AUTO) 3.01 MIL/uL (4.00-5.50); RED CELL DISTRIBUTION WIDTH 17.3 % (11.0-15.5); WHITE BLOOD COUNT (AUTO) 10.9 K/uL (4.8-10.8)
[2022-03-25 05:19] LABS: BILIRUBIN,TOTAL 0.2 mg/dL (0.2-1.0); CREATININE 0.8 mg/dL (0.5-1.5); MAGNESIUM 2.6 mg/dL (1.80-2.40); POTASSIUM 4.5 mmol/L (3.5-5.1); TOTAL PROTEIN, SERUM 4.1 g/dL (6.0-8.3)
[2022-03-25 06:01] LABS: PLATELET MORPHOLOGY COMMENT DECREASED
[2022-03-25] MEDS: INSULIN HUMULIN R 100 UNIT/ML 3ML SQ SCH ×4 (06:42→21:00)
[2022-03-25] MEDS: ARTIFICAL TEARS SOL 15 ML OU SCH ×4 (07:18→22:02)
[2022-03-25 08:00] VITALS: BP 121/82
[2022-03-25] MEDS: METOCLOPRAMIDE 10 MG/2 ML VIAL IVP SCH (09:00)
[2022-03-25] MEDS: MULTIVITAMIN TABLET PO SCH (11:52)
[2022-03-25] MEDS: FOLIC ACID 1 MG TABLET PO SCH (11:53)
[2022-03-25] MEDS: SUCRALFATE 1 GM TABLET PO SCH ×2 (11:53→22:01)
[2022-03-25] MEDS: PANTOPRAZOLE 40 MG TAB DR PO SCH (11:53)
[2022-03-25 12:00] VITALS: BP 116/67
[2022-03-25 16:00] VITALS: BP 129/78
[2022-03-25 20:17] VITALS: BP 114/69
[2022-03-25] MEDS: RIFAXIMIN 550 MG TABLET PO SCH (22:01)
[2022-03-25] MEDS: METOCLOPRAMIDE 5 MG TABLET PO SCH (22:01)
[2022-03-25 23:44] VITALS: BP 111/68
[2022-03-26] MEDS: LACTULOSE 20 GM/30 ML UDCUP PO SCH ×5 (01:17→22:31)
[2022-03-26] MEDS: ARTIFICAL TEARS SOL 15 ML OU SCH ×4 (03:28→22:49)
[2022-03-26 04:10] VITALS: BP 113/71
[2022-03-26] MEDS: INSULIN HUMULIN R 100 UNIT/ML 3ML SQ SCH ×4 (06:11→21:00)
[2022-03-26 06:15] LABS: HEMATOCRIT 29.3 % (36-48); MEAN CORPUSCULAR HEMOGLOBIN 35.2 pg (27.0-33.0); MEAN CORPUSCULAR HGB CONC 32.8 g/dL (32.0-36.0); MEAN CORPUSCULAR VOLUME 107.3 fL (79-99); NUCLEATED RED BLOOD CELLS 0.3 % (0.0-0.19); RED BLOOD CELL COUNT(AUTO) 2.73 MIL/uL (4.00-5.50); RED CELL DISTRIBUTION WIDTH 16.9 % (11.0-15.5); WHITE BLOOD COUNT (AUTO) 6.2 K/uL (4.8-10.8)
[2022-03-26] MEDS: METOCLOPRAMIDE 5 MG TABLET PO SCH ×4 (06:38→22:31)
[2022-03-26 06:43] LABS: ALBUMIN 1.1 g/dL (3.5-5.0); BILIRUBIN,TOTAL 0.3 mg/dL (0.2-1.0); CREATININE 0.7 mg/dL (0.5-1.5); MAGNESIUM 2.3 mg/dL (1.80-2.40); POTASSIUM 3.8 mmol/L (3.5-5.1); TOTAL PROTEIN, SERUM 3.8 g/dL (6.0-8.3)
[2022-03-26] MEDS: SUCRALFATE 1 GM TABLET PO SCH ×2 (07:58→22:31)
[2022-03-26] MEDS: PANTOPRAZOLE 40 MG TAB DR PO SCH (07:58)
[2022-03-26] MEDS: RIFAXIMIN 550 MG TABLET PO SCH ×2 (07:58→22:31)
[2022-03-26] MEDS: MULTIVITAMIN TABLET PO SCH (07:58)
[2022-03-26] MEDS: FOLIC ACID 1 MG TABLET PO SCH (07:58)
[2022-03-26 08:00] VITALS: BP 134/68
[2022-03-26 12:00] VITALS: BP 120/63
[2022-03-26 16:00] VITALS: BP 142/74
[2022-03-26 20:41] VITALS: BP 121/67
[2022-03-26] MEDS: BALSAM PERU/CASTOR OIL 60 GM TUBE TP SCH (22:56)
[2022-03-27] VITALS (7 sets, daily range): BP systolic 112–126; BP diastolic 64–82
[2022-03-27] MEDS: LACTULOSE 20 GM/30 ML UDCUP PO SCH ×4 (02:16→19:30)
[2022-03-27] MEDS: ARTIFICAL TEARS SOL 15 ML OU SCH ×4 (04:24→23:14)
[2022-03-27 05:36] LABS: BASOPHILS % (AUTO) 0.2 % (0.0-5.0); EOSINOPHILS % (AUTO) 1.2 % (0.0-8.0); LYMPHOCYTES % (AUTO) 11.8 % (21.0-51.0); MEAN CORPUSCULAR HEMOGLOBIN 35.5 pg (27.0-33.0); MEAN CORPUSCULAR HGB CONC 33.3 g/dL (32.0-36.0); MEAN CORPUSCULAR VOLUME 106.4 fL (79-99); MONOCYTES % (AUTO) 5.4 % (3.0-13.0); NEUTROPHILS % (AUTO) 81.1 % (40.0-77.0); PLATELET COUNT (AUTO) 36 K/uL (130-400); RED BLOOD CELL COUNT(AUTO) 2.82 MIL/uL (4.00-5.50); RED CELL DISTRIBUTION WIDTH 16.1 % (11.0-15.5); WHITE BLOOD COUNT (AUTO) 5.9 K/uL (4.8-10.8)
[2022-03-27 05:59] LABS: ALBUMIN 1.1 g/dL (3.5-5.0); BILIRUBIN,TOTAL 0.3 mg/dL (0.2-1.0); CREATININE 0.7 mg/dL (0.5-1.5); MAGNESIUM 2.1 mg/dL (1.80-2.40); PHOSPHORUS 3.5 mg/dL (2.5-4.9); POTASSIUM 3.5 mmol/L (3.5-5.1); TOTAL PROTEIN, SERUM 3.8 g/dL (6.0-8.3)
[2022-03-27] MEDS: INSULIN HUMULIN R 100 UNIT/ML 3ML SQ SCH ×4 (07:10→21:00)
[2022-03-27] MEDS: MULTIVITAMIN TABLET PO SCH (08:45)
[2022-03-27] MEDS: METOCLOPRAMIDE 5 MG TABLET PO SCH ×4 (08:45→21:00)
[2022-03-27] MEDS: PANTOPRAZOLE 40 MG TAB DR PO SCH ×2 (08:45→21:00)
[2022-03-27] MEDS: RIFAXIMIN 550 MG TABLET PO SCH ×2 (08:45→21:00)
[2022-03-27] MEDS: SUCRALFATE 1 GM TABLET PO SCH ×2 (08:45→21:00)
[2022-03-27] MEDS: FOLIC ACID 1 MG TABLET PO SCH (08:45)
[2022-03-27] MEDS: BALSAM PERU/CASTOR OIL 60 GM TUBE TP SCH ×3 (08:45→23:13)
[2022-03-27] MEDS: POTASSIUM CHLORIDE 10% ELIXIR 20 MEQ/15 ML UDCUP PO PRN ×2 (13:26→18:10)
[2022-03-27] MEDS: ACETAMINOPHEN 325 MG TAB PO PRN (14:19)
[2022-03-27] MEDS: NYSTATIN 100000 UNIT/ML 5ML UDCUP PO SCH ×2 (18:09→21:00)
[2022-03-28] MEDS: LACTULOSE 20 GM/30 ML UDCUP PO SCH ×4 (01:30→22:11)
[2022-03-28] MEDS: ARTIFICAL TEARS SOL 15 ML OU SCH ×4 (04:29→22:14)
[2022-03-28 04:30] VITALS: BP 120/70
[2022-03-28] MEDS: INSULIN HUMULIN R 100 UNIT/ML 3ML SQ SCH ×4 (07:30→21:00)
[2022-03-28 08:00] VITALS: BP 124/68
[2022-03-28] MEDS ORDERED: PHARMACY COMMUNICATION MISC SCH ×2 (08:30)
[2022-03-28 08:57] LABS: BASOPHILS % (AUTO) 0.1 % (0.0-5.0); EOSINOPHILS % (AUTO) 0.7 % (0.0-8.0); HEMATOCRIT 30.5 % (36-48); LYMPHOCYTES % (AUTO) 9.7 % (21.0-51.0); MEAN CORPUSCULAR HEMOGLOBIN 34.8 pg (27.0-33.0); MEAN CORPUSCULAR HGB CONC 32.8 g/dL (32.0-36.0); MEAN CORPUSCULAR VOLUME 106.3 fL (79-99); MONOCYTES % (AUTO) 4.2 % (3.0-13.0); NEUTROPHILS % (AUTO) 84.9 % (40.0-77.0); PLATELET COUNT (AUTO) 34 K/uL (130-400); RED BLOOD CELL COUNT(AUTO) 2.87 MIL/uL (4.00-5.50); RED CELL DISTRIBUTION WIDTH 16.1 % (11.0-15.5); WHITE BLOOD COUNT (AUTO) 7.2 K/uL (4.8-10.8)
[2022-03-28] MEDS ORDERED: CLINIMIX-E4.25%AA/D5+LYT2000ML 2,000 ML IV NR (09:00)
[2022-03-28 09:07] LABS: INR 1.3 (0.85-1.15)
[2022-03-28 09:09] LABS: CREATININE 0.5 mg/dL (0.5-1.5); PARTIAL THROMBOPLASTIN TIME 38.4 SEC (26.3-35.5); POTASSIUM 4.3 mmol/L (3.5-5.1)
[2022-03-28 09:13] LABS: BILIRUBIN,TOTAL 0.3 mg/dL (0.2-1.0); TOTAL PROTEIN, SERUM 3.8 g/dL (6.0-8.3)
[2022-03-28] MEDS: FOLIC ACID 1 MG TABLET PO SCH (09:55)
[2022-03-28] MEDS: RIFAXIMIN 550 MG TABLET PO SCH ×2 (09:55→22:12)
[2022-03-28] MEDS: SUCRALFATE 1 GM TABLET PO SCH ×2 (09:55→22:11)
[2022-03-28] MEDS: METOCLOPRAMIDE 5 MG TABLET PO SCH ×4 (09:56→22:12)
[2022-03-28] MEDS: EPOETIN ALFA-EPBX (NON-ESRD) 10,000 UNIT/ML VIAL SQ SCH (09:56)
[2022-03-28] MEDS: NYSTATIN 100000 UNIT/ML 5ML UDCUP PO SCH ×4 (09:56→23:15)
[2022-03-28] MEDS: MULTIVITAMIN TABLET PO SCH (09:56)
[2022-03-28] MEDS: PANTOPRAZOLE 40 MG TAB DR PO SCH ×2 (09:57→22:12)
[2022-03-28] MEDS: BALSAM PERU/CASTOR OIL 60 GM TUBE TP SCH ×2 (11:27→15:20)
[2022-03-28 11:49] VITALS: BP 137/75
[2022-03-28 16:00] VITALS: BP 127/72
[2022-03-28 20:39] VITALS: BP 129/74
[2022-03-28 23:45] VITALS: BP 101/63
[2022-03-29] MEDS: BALSAM PERU/CASTOR OIL 60 GM TUBE TP SCH ×4 (01:54→20:49)
[2022-03-29] MEDS: LACTULOSE 20 GM/30 ML UDCUP PO SCH ×4 (01:56→20:48)
[2022-03-29 04:06] VITALS: BP 109/65
[2022-03-29] MEDS: ARTIFICAL TEARS SOL 15 ML OU SCH ×4 (04:27→20:50)
[2022-03-29 05:20] LABS: HEMATOCRIT 32.5 % (36-48); MEAN CORPUSCULAR HEMOGLOBIN 35.6 pg (27.0-33.0); MEAN CORPUSCULAR HGB CONC 32.6 g/dL (32.0-36.0); MEAN CORPUSCULAR VOLUME 109.1 fL (79-99); RED BLOOD CELL COUNT(AUTO) 2.98 MIL/uL (4.00-5.50); RED CELL DISTRIBUTION WIDTH 16.2 % (11.0-15.5); WHITE BLOOD COUNT (AUTO) 9.3 K/uL (4.8-10.8)
[2022-03-29 05:22] LABS: CREATININE 0.5 mg/dL (0.5-1.5); POTASSIUM 4.4 mmol/L (3.5-5.1)
[2022-03-29] MEDS: INSULIN HUMULIN R 100 UNIT/ML 3ML SQ SCH ×4 (06:09→20:40)
[2022-03-29] MEDS: METOCLOPRAMIDE 5 MG TABLET PO SCH ×4 (06:32→20:49)
[2022-03-29 08:00] VITALS: BP 105/64
[2022-03-29] MEDS: RIFAXIMIN 550 MG TABLET PO SCH ×2 (09:11→20:49)
[2022-03-29] MEDS: NYSTATIN 100000 UNIT/ML 5ML UDCUP PO SCH ×4 (09:11→20:49)
[2022-03-29] MEDS: SUCRALFATE 1 GM TABLET PO SCH ×2 (09:11→20:49)
[2022-03-29] MEDS: MULTIVITAMIN TABLET PO SCH (09:12)
[2022-03-29] MEDS: PANTOPRAZOLE 40 MG TAB DR PO SCH ×2 (09:12→20:49)
[2022-03-29] MEDS: FOLIC ACID 1 MG TABLET PO SCH (09:12)
[2022-03-29 11:57] VITALS: BP 135/76
[2022-03-29] MEDS: SODIUM BICARBONATE 650 MG TAB PO SCH ×2 (14:45→20:49)
[2022-03-29 16:00] VITALS: BP 136/75
[2022-03-29 20:00] VITALS: BP 121/70
[2022-03-29] MEDS: DRONABINOL 2.5 MG CAP PO SCH (20:49)
[2022-03-30] VITALS: BP 107/66
[2022-03-30] MEDS: LACTULOSE 20 GM/30 ML UDCUP PO SCH ×4 (01:30→19:30)
[2022-03-30 04:00] VITALS: BP 120/68
[2022-03-30] MEDS: ARTIFICAL TEARS SOL 15 ML OU SCH ×3 (04:17→16:50)
[2022-03-30] MEDS: INSULIN HUMULIN R 100 UNIT/ML 3ML SQ SCH ×3 (06:44→16:30)
[2022-03-30] MEDS: METOCLOPRAMIDE 5 MG TABLET PO SCH ×3 (06:44→16:49)
[2022-03-30 07:30] VITALS: BP 114/72
[2022-03-30] MEDS: BALSAM PERU/CASTOR OIL 60 GM TUBE TP SCH ×2 (09:00→14:00)
[2022-03-30] MEDS: SUCRALFATE 1 GM TABLET PO SCH (10:21)
[2022-03-30] MEDS: MULTIVITAMIN TABLET PO SCH (10:21)
[2022-03-30] MEDS: PANTOPRAZOLE 40 MG TAB DR PO SCH (10:21)
[2022-03-30] MEDS: DRONABINOL 2.5 MG CAP PO SCH (10:21)
[2022-03-30] MEDS: RIFAXIMIN 550 MG TABLET PO SCH (10:21)
[2022-03-30] MEDS: SODIUM BICARBONATE 650 MG TAB PO SCH ×2 (10:22→13:20)
[2022-03-30] MEDS: FOLIC ACID 1 MG TABLET PO SCH (10:22)
[2022-03-30] MEDS: NYSTATIN 100000 UNIT/ML 5ML UDCUP PO SCH ×3 (10:22→16:49)
[2022-03-30 11:00] VITALS: BP 118/79
[2022-03-30 16:00] VITALS: BP 154/92
[2022-03-30] MEDS ORDERED: DIATR MEGLU/DIATRIZOATE SODIUM 30 ML BOTTLE ONE (16:01)
[2022-03-30] MEDS ORDERED: IOHEXOL-350 75 ML VIAL IV ONE (18:57)
[2022-03-30 20:00] VITALS: BP 125/69
[2022-03-31] VITALS: BP 112/63
[2022-03-31] MEDS: DRONABINOL 2.5 MG CAP PO SCH ×2 (00:22→10:48)
[2022-03-31] MEDS: PANTOPRAZOLE 40 MG TAB DR PO SCH ×2 (00:22→10:47)
[2022-03-31] MEDS: NYSTATIN 100000 UNIT/ML 5ML UDCUP PO SCH (00:22)
[2022-03-31] MEDS: SUCRALFATE 1 GM TABLET PO SCH ×2 (00:22→10:47)
[2022-03-31] MEDS: RIFAXIMIN 550 MG TABLET PO SCH ×2 (00:23→10:48)
[2022-03-31] MEDS: SODIUM BICARBONATE 650 MG TAB PO SCH (00:23)
[2022-03-31] MEDS: INSULIN HUMULIN R 100 UNIT/ML 3ML SQ SCH ×3 (00:23→11:30)
[2022-03-31] MEDS: METOCLOPRAMIDE 5 MG TABLET PO SCH ×3 (00:23→10:48)
[2022-03-31] MEDS: ARTIFICAL TEARS SOL 15 ML OU SCH ×3 (00:24→10:48)
[2022-03-31] MEDS: BALSAM PERU/CASTOR OIL 60 GM TUBE TP SCH ×2 (00:24→10:49)
[2022-03-31] MEDS: EPOETIN ALFA-EPBX (NON-ESRD) 10,000 UNIT/ML VIAL SQ SCH (00:24)
[2022-03-31] MEDS: LACTULOSE 20 GM/30 ML UDCUP PO SCH ×2 (01:30→06:34)
[2022-03-31 04:00] VITALS: BP 105/63
[2022-03-31 06:39] LABS: BASOPHILS % (AUTO) 0.1 % (0.0-5.0); EOSINOPHILS % (AUTO) 0.4 % (0.0-8.0); HEMATOCRIT 30.8 % (36-48); LYMPHOCYTES % (AUTO) 5.9 % (21.0-51.0); MEAN CORPUSCULAR HEMOGLOBIN 34.9 pg (27.0-33.0); MEAN CORPUSCULAR HGB CONC 31.8 g/dL (32.0-36.0); MEAN CORPUSCULAR VOLUME 109.6 fL (79-99); MONOCYTES % (AUTO) 2.7 % (3.0-13.0); NEUTROPHILS % (AUTO) 90.8 % (40.0-77.0); NUCLEATED RED BLOOD CELLS 0.3 % (0.0-0.19); PLATELET COUNT (AUTO) 61 K/uL (130-400); RED BLOOD CELL COUNT(AUTO) 2.81 MIL/uL (4.00-5.50); RED CELL DISTRIBUTION WIDTH 15.7 % (11.0-15.5); WHITE BLOOD COUNT (AUTO) 7.8 K/uL (4.8-10.8)
[2022-03-31 06:59] LABS: INR 1.25 (0.85-1.15); PROTHROMBIN TIME 13.5 SEC (9.6-11.6)
[2022-03-31 07:14] LABS: ALBUMIN 1.1 g/dL (3.5-5.0); BILIRUBIN,TOTAL 0.4 mg/dL (0.2-1.0); CREATININE 0.6 mg/dL (0.5-1.5); MAGNESIUM 1.7 mg/dL (1.80-2.40); PHOSPHORUS 4.2 mg/dL (2.5-4.9); POTASSIUM 4.3 mmol/L (3.5-5.1); TOTAL PROTEIN, SERUM 3.9 g/dL (6.0-8.3)
[2022-03-31 07:30] VITALS: BP 116/71
[2022-03-31] MEDS: MULTIVITAMIN TABLET PO SCH (10:47)
[2022-03-31] MEDS: FOLIC ACID 1 MG TABLET PO SCH (10:48)
[2022-03-31 11:00] VITALS: BP 137/87
[2022-03-31 16:00] VITALS: BP 125/81
== END 2022-03-31 17:25 | DRG 432 ==
LOC: EDH 13:32 → EDHIP 15:51 → OBSVTOIN 15:51 → 3BH 03-20 01:57
PROVIDERS: ADMIT Internal Medicine Critical Care Medicine; ATTEND Internal Medicine Critical Care Medicine
PROC: 0W9G3ZZ Drainage of Peritoneal Cavity, Percutaneous Approach (ICD-10-PCS; principal; 2022-03-21)
PROC: 02HV33Z Insertion of Infusion Device into Superior Vena Cava, Percutaneous Approach (ICD-10-PCS; 2022-03-31)
DX: K74.60 Unspecified cirrhosis of liver (principal); G93.41 Metabolic encephalopathy; E43 Unspecified severe protein-calorie malnutrition; K72.00 Acute and subacute hepatic failure without coma; I50.32 Chronic diastolic (congestive) heart failure; D68.9 Coagulation defect, unspecified; R18.8 Other ascites; E87.1 Hypo-osmolality and hyponatremia; Z68.1 Body mass index [BMI] 19.9 or less, adult; D63.8 Anemia in other chronic diseases classified elsewhere; D46.9 Myelodysplastic syndrome, unspecified; E83.51 Hypocalcemia; F17.200 Nicotine dependence, unspecified, uncomplicated; K72.10 Chronic hepatic failure without coma; R62.7 Adult failure to thrive; Z79.899 Other long term (current) drug therapy; Z85.42 Personal history of malignant neoplasm of other parts of uterus; Z90.710 Acquired absence of both cervix and uterus; K21.9 Gastro-esophageal reflux disease without esophagitis
CPT/HCPCS: 36415; 49083; 71045; 74018; 74176; 76700; 80048; 80053; 81001; 82140; 82948; 83690; 83735; 84100; 84145; 85025; 85027; 85610; 85730; 86850; 86900; 86901; 87040; 87071; 87088; 87205; 87635; 87880; 88112; 88305; 89051; 92610; 93005; 93306; 93925; 94640; 97039; 99291; C1729; C1894; G0378; J0690; J0696; J2405; J2765; J3490; Q0167; Q9963; Q9967

== ENCOUNTER 2022-03-31 21:56 | Observation (INO) | payer OTHER ==
[~2022-03-31] VITALS: Ht 149.9 cm; Wt 35.2 kg
[2022-04-01] MEDS ORDERED: CACL 1GM SYG IVP ONE (11:22)
[2022-04-01] MEDS ORDERED: EPINEPHRINE 1MG SYG 10ML IVP ONE (11:22)
[2022-04-01] MEDS ORDERED: SODIUM BICARB 8.4% 50ML SYRINGE IVP ONE (11:22)
[2022-04-01] MEDS ORDERED: CLONIDINE HCL 0.1 MG TABLET PO PRN (19:00)
[2022-04-01] MEDS ORDERED: ONDANSETRON 4MG INJ IVP PRN (19:00)
[2022-04-01] MEDS ORDERED: ACETAMINOPHEN 650 MG SUPPOSITORY RC PRN (19:00)
[2022-04-01] MEDS ORDERED: LABETALOL 20MG SYG IV PRN (19:00)
[2022-04-01] MEDS ORDERED: ACETAMINOPHEN 325 MG TAB PO PRN (19:00)
[2022-04-01 20:02] LABS: HEMATOCRIT 27.5 % (36-48); MEAN CORPUSCULAR HEMOGLOBIN 35.8 pg (27.0-33.0); MEAN CORPUSCULAR HGB CONC 33.1 g/dL (32.0-36.0); MEAN CORPUSCULAR VOLUME 108.3 fL (79-99); NUCLEATED RED BLOOD CELLS 0.4 % (0.0-0.19); PLATELET COUNT (AUTO) 67 K/uL (130-400); RED BLOOD CELL COUNT(AUTO) 2.54 MIL/uL (4.00-5.50); RED CELL DISTRIBUTION WIDTH 15.9 % (11.0-15.5); WHITE BLOOD COUNT (AUTO) 10.5 K/uL (4.8-10.8)
[2022-04-01 20:25] LABS: ALANINE AMINOTRANSFERASE 95 U/L (12-78); AMYLASE 15 U/L (25-115); ASPARTATE AMINOTRANSFERASE 232 U/L (10-37); BILIRUBIN,TOTAL 0.5 mg/dL (0.2-1.0); CARBON DIOXIDE 23 mmol/L (21-32); CHLORIDE 104 mmol/L (101-111); CREATININE 0.4 mg/dL (0.5-1.5); GLOMERULAR FILTR. RATE CALC 167 mL/min (>60); GLUCOSE,RANDOM 91 mg/dL (70-105); POTASSIUM 5.3 mmol/L (3.5-5.1); SODIUM SERUM 135 mmol/L (136-145); TOTAL PROTEIN, SERUM 3.8 g/dL (6.0-8.3); UREA NITROGEN, BLOOD 41 mg/dL (7-18)
[2022-04-01 20:26] LABS: LIPASE < 10 U/L (114-286)
[2022-04-01] MEDS: INSULIN HUMULIN R 100 UNIT/ML 3ML SQ SCH (21:00)
[2022-04-02] MEDS ORDERED: 0.9%NACL 1000ML 1,000 ML IV SCH (00:45)
[2022-04-02 01:20] VITALS: BP 91/64
[2022-04-02] MEDS ORDERED: EPOETIN ALFA-EPBX (NON-ESRD) 10,000 UNIT/ML VIAL SQ SCH (02:00)
[2022-04-02] MEDS ORDERED: ALBUTEROL 0.083% 2.5 MG/3 ML INH IH PRN (02:00)
[2022-04-02 04:27] VITALS: BP 94/61
[2022-04-02 05:19] LABS: BASOPHILS % (AUTO) 0.2 % (0.0-5.0); HEMATOCRIT 27.6 % (36-48); LYMPHOCYTES % (AUTO) 4.8 % (21.0-51.0); MEAN CORPUSCULAR HEMOGLOBIN 35.2 pg (27.0-33.0); MEAN CORPUSCULAR HGB CONC 31.9 g/dL (32.0-36.0); MEAN CORPUSCULAR VOLUME 110.4 fL (79-99); MONOCYTES % (AUTO) 2.3 % (3.0-13.0); NEUTROPHILS % (AUTO) 92.1 % (40.0-77.0); NUCLEATED RED BLOOD CELLS 0.5 % (0.0-0.19); PLATELET COUNT (AUTO) 77 K/uL (130-400); RED CELL DISTRIBUTION WIDTH 15.9 % (11.0-15.5); WHITE BLOOD COUNT (AUTO) 12.7 K/uL (4.8-10.8)
[2022-04-02 05:23] LABS: INR 1.4 (0.85-1.15)
[2022-04-02 05:35] LABS: BILIRUBIN,TOTAL 0.4 mg/dL (0.2-1.0); CREATININE 0.4 mg/dL (0.5-1.5); MAGNESIUM 1.8 mg/dL (1.80-2.40); POTASSIUM 5.9 mmol/L (3.5-5.1)
[2022-04-02] MEDS ORDERED: GLUCAGON 1MG KIT 1 MG ML IM PRN (06:00)
[2022-04-02] MEDS ORDERED: DEXTROSE 50%-WATER 50 ML DISP.SYRIN IV PRN (06:00)
[2022-04-02] MEDS ORDERED: ARTIFICAL TEARS SOL 15 ML OU SCH (06:00)
[2022-04-02] MEDS: INSULIN HUMULIN R 100 UNIT/ML 3ML SQ SCH (06:00)
[2022-04-02 07:15] VITALS: BP 98/55
[2022-04-02] MEDS ORDERED: MULTIVITAMIN TABLET PO SCH (09:00)
[2022-04-02] MEDS ORDERED: NYSTATIN 100000 UNIT/ML 5ML UDCUP PO SCH (09:00)
[2022-04-02] MEDS ORDERED: SODIUM BICARBONATE 650 MG TAB PO SCH (09:00)
[2022-04-02] MEDS ORDERED: RIFAXIMIN 200 MG TABLET PO SCH (09:00)
[2022-04-02] MEDS ORDERED: SUCRALFATE 1 GM TABLET PO SCH (09:00)
[2022-04-02] MEDS ORDERED: DEXTROSE 5 %-0.45 % NACL 1,000 ML IV SCH (09:00)
[2022-04-02] MEDS ORDERED: FOLIC ACID 1 MG TABLET PO SCH (09:00)
[2022-04-02] MEDS ORDERED: PANTOPRAZOLE 40 MG TAB DR PO SCH (09:00)
[2022-04-02] MEDS ORDERED: METOCLOPRAMIDE 10 MG/2 ML VIAL IVP SCH (09:00)
[2022-04-02] MEDS ORDERED: BALSAM PERU/CASTOR OIL 60 GM TUBE TP SCH (09:00)
[2022-04-02] MEDS ORDERED: RIFAXIMIN 550 MG TABLET PO SCH (09:00)
[2022-04-02] MEDS ORDERED: SODIUM BICARB 50MEQ 50ML VIAL IV SCH (10:00)
[2022-04-02] MEDS ORDERED: INSULIN HUMULIN R 100 UNIT/ML 3ML IV ONE (10:00)
[2022-04-02] MEDS ORDERED: KAYEXALATE 15GM/60ML PO ONE (10:00)
[2022-04-02] MEDS ORDERED: DEXTROSE 50%-WATER 50 ML DISP.SYRIN IV ONE (11:20)
== END 2022-04-02 11:23 ==
LOC: EDH 21:56 → EDHIP 04-01 18:10 → 3AH 04-02 00:58
PROVIDERS: ADMIT Internal Medicine Critical Care Medicine; ATTEND Internal Medicine Critical Care Medicine
DX: R54 Age-related physical debility (principal); E86.0 Dehydration; E43 Unspecified severe protein-calorie malnutrition; R74.01 Elevation of levels of liver transaminase levels; R79.89 Other specified abnormal findings of blood chemistry; K76.89 Other specified diseases of liver; D68.9 Coagulation defect, unspecified; D50.0 Iron deficiency anemia secondary to blood loss (chronic); D63.8 Anemia in other chronic diseases classified elsewhere; D46.9 Myelodysplastic syndrome, unspecified; D69.6 Thrombocytopenia, unspecified; E78.00 Pure hypercholesterolemia, unspecified; E87.1 Hypo-osmolality and hyponatremia; I11.0 Hypertensive heart disease with heart failure; I50.32 Chronic diastolic (congestive) heart failure; K56.41 Fecal impaction; K72.10 Chronic hepatic failure without coma; K74.60 Unspecified cirrhosis of liver; N39.0 Urinary tract infection, site not specified; R18.8 Other ascites; R64 Cachexia; Z68.1 Body mass index [BMI] 19.9 or less, adult; Z85.42 Personal history of malignant neoplasm of other parts of uterus; Z90.710 Acquired absence of both cervix and uterus; Z79.899 Other long term (current) drug therapy; Z98.890 Other specified postprocedural states
CPT/HCPCS: 36415 ×2; 80053 ×2; 82140; 82150; 82948 ×3; 83690; 83735; 84100; 84145; 85025; 85027; 85610; 85730; 92950; 99284; G0378 ×17; J0171; J1815; J3490 ×3; J7070; J2765; J7042